=== PATIENT | female | born 1960 | race Caucasian/White ===

== ENCOUNTER 2017-09-19 19:17 | Emergency (ER) | payer OTHER ==
[~2017-09-19] VITALS: Ht 157.5 cm; Wt 56.7 kg
[~2017-09-19 19:17] MED LIST: ACEASPCAF PO; ACEBUTCAFT PO; ALBU90OI INH; ASCO500 PO; AZIT250 PO; Avelox400 MG PO; BUPR150ER PO; CODBUTASA PO; CYCL10 PO; DILAUDID PO; DOCU100 PO; DULERA 100 MCG/13 GM INH; ERGO400 PO; FAMO20 PO; Flagyl250 MG PO; GABA100 PO; GABA400 PO; Gas Relief 8080 MG PO; HYDACE5 PO; HYDACE5325 PO; HYDMOR2 PO; HYDR1TAB94 PO; IPRAOI INH; Inderal60 MG; LEVFLO500 PO; LEVO750 PO; LORA.5 PO; LORA1 PO; LORA10 PO; LORA2 PO; MONT10T PO; NAPR550 PO; Norco 10-325 T1 EACH PO; OMEP20ER PO; ONDA4 PO; OSTEOPOROSIS MED; OXYACE5T PO; PRED10 PO; PROC10 PO; PROM25 PO; PROP10 PO; Percocet 5-3251 EACH PO; Percocet 7.5-31 EACH PO; QUET100 PO; QUET25 PO; ROPI.25 PO; RXHYDACE PO; RXLORA1 PO; RXNAPNA550 PO; SERT100 PO; SERT50 PO; SULTRISS PO; SUMA25 PO; TRAZ50 PO; TYLENOL PO; VENL75ER PO; Valium5 MG PO; Zofran Odt4 MG SL; [UNRECOGNIZED DRUG - REMARK]; [UNRECOGNIZED DRUG - REMARK]
[2017-09-19] MEDS ORDERED: CHOL10002 PO (19:33)
[2017-09-19] MEDS ORDERED: ALBU90OI INH (19:33)
[2017-09-19] MEDS ORDERED: DOCU100 PO (19:34)
[2017-09-19] MEDS ORDERED: LORPSEER24 PO (19:35)
[2017-09-19] MEDS ORDERED: HYDHCL25 PO (19:35)
[2017-09-19] MEDS ORDERED: Inderal40 MG PO (19:36)
[2017-09-19] MEDS ORDERED: ONDA4ODT MM (19:36)
[2017-09-19] MEDS ORDERED: MONT10T PO (19:36)
[2017-09-19] MEDS ORDERED: SERT50 PO (19:37)
[2017-09-19] MEDS ORDERED: QUET200 PO (19:37)
[2017-09-19] MEDS ORDERED: ROPI.25 PO (19:37)
[2017-09-19] MEDS ORDERED: SUMA25 PO (19:38)
[2017-09-19 20:05] LABS: Calcium, Ionized (POC) 1.34 mmol/L (1.10-1.46); Chloride (POC) 106 mmol/L (98-108); Creatinine (POC) 0.7 mg/dL (0.6-1.0); Glucose (ISTAT POC) 89 mg/dL (70-99); Hemoglobin (POC) 12.6 g/dL (12.0-16.0); Potassium (POC) 3.7 mmol/L (3.5-5.5); Sodium (POC) 143 mmol/L (135-148); Total CO2 (POC) 28 mmol/L (21-32)
[2017-09-19] MEDS ORDERED: HYDR1TAB94 PO (21:25)
== END 2017-09-19 22:03 | disposition home or self-care (01) ==
LOC: ER 19:17
PROVIDERS: Emergency Medicine
DX: S02.2XXA Fracture of nasal bones, initial encounter for closed fracture (principal); S80.212A Abrasion, left knee, initial encounter; S00.212A Abrasion of left eyelid and periocular area, initial encounter; F41.9 Anxiety disorder, unspecified; I25.2 Old myocardial infarction; W01.118A Fall on same level from slipping, tripping and stumbling with subsequent striking against other sharp object, initial encounter; Z88.0 Allergy status to penicillin; Z88.8 Allergy status to other drugs, medicaments and biological substances; Z88.2 Allergy status to sulfonamides; Z79.899 Other long term (current) drug therapy; Z87.891 Personal history of nicotine dependence
CPT/HCPCS: 36415; 70486; 80047; 85014; 93005; 93010; 96374; 99284; J1170

== ENCOUNTER 2018-09-30 18:43 | Emergency (ER) | payer OTHER ==
[~2018-09-30] VITALS: Ht 157.5 cm; Wt 65.3 kg
[~2018-09-30 18:43] MED LIST changes: +CHOL10002 PO; +HYDHCL25 PO; +Inderal40 MG PO; +LORPSEER24 PO; +ONDA4ODT MM; +QUET200 PO
[2018-09-30] MEDS ORDERED: Buspirone HCl15 MG PO (19:07)
[2018-09-30] MEDS ORDERED: SUMA25 PO (19:08)
[2018-09-30] MEDS ORDERED: ONDA4 PO (19:08)
[2018-09-30] MEDS ORDERED: FISH OIL + D31 EACH PO (19:08)
[2018-09-30] MEDS ORDERED: OMEPRAZOLE MAGN20 MG PO (19:09)
[2018-09-30] MEDS ORDERED: LEVSOD50 PO (19:09)
[2018-09-30] MEDS ORDERED: OXYM.05NI (19:09)
[2018-09-30] MEDS ORDERED: Inderal40 MG (19:10)
[2018-09-30] MEDS ORDERED: DOCU100 PO (19:10)
[2018-09-30] MEDS ORDERED: QUET200 PO (19:10)
[2018-09-30] MEDS ORDERED: HYDHCL25 PO (19:11)
[2018-09-30] MEDS ORDERED: ROPI.25 PO (19:11)
[2018-09-30] MEDS ORDERED: MONT10T PO (19:11)
[2018-09-30] MEDS ORDERED: Flexeril5 MG (19:12)
[2018-09-30 19:15] LABS: BASOPHILS ABSOLUTE AUTO 0.08 K/mm3 (0.00-0.23); BASOPHILS PERCENT AUTO 1 % (0-2); EOSINOPHILS PERCENT AUTO 3 % (0-6); Hematocrit 36.9 % (33.0-51.0); Hemoglobin 11.8 g/dL (11.5-16.0); IMMATURE GRAN ABSOLUTE AUTO 0.02 K/mm3 (0.00-0.10); IMMATURE GRAN PERCENT AUTO 0 % (0-1); LYMPHOCYTES ABSOLUTE AUTO 3.07 K/mm3 (0.84-5.20); LYMPHOCYTES PERCENT AUTO 26 % (21-46); MONOCYTES PERCENT AUTO 6 % (4-13); Mean Corpuscular HGB 29.8 pg (26.0-34.0); Mean Corpuscular Volume 93 fL (80-100); Mean Platelet Volume 9.9 fL (9.1-12.4); NEUTROPHILS ABSOLUTE AUTO 7.59 K/mm3 (1.96-9.15); NEUTROPHILS PERCENT AUTO 64 % (41-73); Platelet Count 393 K/mm3 (150-400); RDW Coefficient Variation 13.4 % (11.7-14.2); Red Blood Cell Count 3.96 M/mm3 (3.80-5.20); White Blood Cell Count 11.86 K/mm3 (4.00-11.30)
[2018-09-30 19:40] LABS: Troponin I <0.015 ng/mL (0.000-0.040)
[2018-09-30 19:55] LABS: Alanine Aminotransfer (ALT/SGP 17 U/L (12-78); Albumin, Blood 3.2 g/dL (3.4-5.0); Albumin/Globulin Ratio 0.9 (0.8-1.8); Alk Phos 135 U/L (50-136); Anion Gap 6 mmol/L (6-16); Aspartate Aminotrans (AST/SGOT 17 U/L (12-37); Bilirubin, Total 0.3 mg/dL (0.1-1.0); Blood Urea Nitrogen 12 mg/dL (8-24); CO2, Blood 23 mmol/L (21-32); Calcium, Blood 9.6 mg/dL (8.5-10.1); Chloride, Blood 111 mmol/L (98-108); Globulin, Blood 3.7 g/dL (2.2-4.0); Glomerular Filtration Rate >60 (60-); Glucose, Blood 99 mg/dL (70-99); Potassium, Blood 3.9 mmol/L (3.5-5.5); Sodium, Blood 140 mmol/L (136-145); Total Protein, Blood 6.9 g/dL (6.4-8.2)
[2018-09-30] MEDS ORDERED: IBUP600 PO (22:01)
== END 2018-09-30 22:26 | disposition home or self-care (01) ==
LOC: ER 18:43
PROVIDERS: Emergency Medicine
DX: R07.9 Chest pain, unspecified (principal); F41.9 Anxiety disorder, unspecified; I25.2 Old myocardial infarction; F17.210 Nicotine dependence, cigarettes, uncomplicated; Z88.0 Allergy status to penicillin; Z88.2 Allergy status to sulfonamides; Z79.899 Other long term (current) drug therapy
CPT/HCPCS: 36415; 71045; 80053; 83880; 84484; 85025; 85379; 93005; 93010; 94640; 96374; 96375; 96376; 99285-25; J1885; J3010

== ENCOUNTER 2018-12-22 14:13 | Emergency (ER) | payer OTHER ==
[~2018-12-22] VITALS: Ht 157.5 cm; Wt 64.9 kg
[~2018-12-22 14:13] MED LIST changes: +Buspirone HCl15 MG PO; +FISH OIL + D31 EACH PO; +Flexeril5 MG; +IBUP600 PO; +Inderal40 MG; +LEVSOD50 PO; +OMEPRAZOLE MAGN20 MG PO; +OXYM.05NI
[2018-12-22] MEDS ORDERED: Percocet 10-321 EACH PO (17:49)
[2018-12-22] MEDS ORDERED: Crutch1 EACH MISC (17:53)
== END 2018-12-22 18:18 | disposition home or self-care (01) ==
LOC: ER 14:13
DX: S82.841A Displaced bimalleolar fracture of right lower leg, initial encounter for closed fracture (principal); S89.201A Unspecified physeal fracture of upper end of right fibula, initial encounter for closed fracture; I25.2 Old myocardial infarction; F41.9 Anxiety disorder, unspecified; G40.909 Epilepsy, unspecified, not intractable, without status epilepticus; J44.9 Chronic obstructive pulmonary disease, unspecified; F17.200 Nicotine dependence, unspecified, uncomplicated; Z88.2 Allergy status to sulfonamides; Z88.0 Allergy status to penicillin; Z88.8 Allergy status to other drugs, medicaments and biological substances; Z79.899 Other long term (current) drug therapy; X50.1XXA Overexertion from prolonged static or awkward postures, initial encounter
CPT/HCPCS: 29515; 73590; 73600; 96374-59; 96375-59; 96376-59; 99284-25; J1170; J2405

== ENCOUNTER 2018-12-27 12:24 | Emergency (ER) | payer OTHER ==
[~2018-12-27] VITALS: Ht 157.5 cm; Wt 64.9 kg
[~2018-12-27 12:24] MED LIST changes: +Crutch1 EACH MISC; +Percocet 10-321 EACH PO
[2018-12-27] MEDS ORDERED: Percocet 5-3251 EACH PO (15:01)
== END 2018-12-27 15:20 | disposition home or self-care (01) ==
LOC: ER 12:24
DX: S90.01XA Contusion of right ankle, initial encounter (principal); Z46.89 Encounter for fitting and adjustment of other specified devices; X58.XXXA Exposure to other specified factors, initial encounter; Z88.0 Allergy status to penicillin; Z88.8 Allergy status to other drugs, medicaments and biological substances; Z88.1 Allergy status to other antibiotic agents; Z79.899 Other long term (current) drug therapy; F41.9 Anxiety disorder, unspecified; F17.210 Nicotine dependence, cigarettes, uncomplicated; J44.9 Chronic obstructive pulmonary disease, unspecified
CPT/HCPCS: 99283

== ENCOUNTER 2019-03-12 11:08 | Emergency (ER) | payer OTHER ==
[~2019-03-12] VITALS: Ht 157.5 cm; Wt 64.9 kg
[~2019-03-12 11:08] MED LIST changes: -Inderal40 MG
[2019-03-12 11:54] LABS: BASOPHILS ABSOLUTE AUTO 0.05 K/mm3 (0.00-0.23); BASOPHILS PERCENT AUTO 0 % (0-2); EOSINOPHILS ABSOLUTE AUTO 0.09 K/mm3 (0.00-0.68); EOSINOPHILS PERCENT AUTO 1 % (0-6); Hematocrit 36.1 % (33.0-51.0); Hemoglobin 11.9 g/dL (11.5-16.0); IMMATURE GRAN ABSOLUTE AUTO 0.05 K/mm3 (0.00-0.10); IMMATURE GRAN PERCENT AUTO 0 % (0-1); LYMPHOCYTES ABSOLUTE AUTO 1.83 K/mm3 (0.84-5.20); LYMPHOCYTES PERCENT AUTO 13 % (21-46); MONOCYTES ABSOLUTE AUTO 0.77 K/mm3 (0.16-1.47); MONOCYTES PERCENT AUTO 6 % (4-13); Mean Corpuscular HGB 30.1 pg (26.0-34.0); Mean Corpuscular Volume 91 fL (80-100); Mean Platelet Volume 9.6 fL (9.1-12.4); NEUTROPHILS ABSOLUTE AUTO 11.29 K/mm3 (1.96-9.15); NEUTROPHILS PERCENT AUTO 80 % (41-73); Platelet Count 298 K/mm3 (150-400); RDW Coefficient Variation 14.1 % (11.7-14.2); RDW Standard Deviation 47.5 fL (35.1-46.3); Red Blood Cell Count 3.96 M/mm3 (3.80-5.20); White Blood Cell Count 14.08 K/mm3 (4.00-11.30)
[2019-03-12 12:17] LABS: Alanine Aminotransfer (ALT/SGP 10 U/L (12-78); Albumin, Blood 2.7 g/dL (3.4-5.0); Albumin/Globulin Ratio 0.7 (0.8-1.8); Alk Phos 112 U/L (50-136); Anion Gap 5 mmol/L (6-16); Aspartate Aminotrans (AST/SGOT 9 U/L (12-37); Bilirubin, Total 0.3 mg/dL (0.1-1.0); Blood Urea Nitrogen 8 mg/dL (8-24); Bun/Creatinine Ratio 12.5 (12.0-20.0); CO2, Blood 23 mmol/L (21-32); Calcium, Blood 9.7 mg/dL (8.5-10.1); Chloride, Blood 111 mmol/L (98-108); Creatinine, Blood 0.64 mg/dL (0.40-1.00); Globulin, Blood 3.7 g/dL (2.2-4.0); Glomerular Filtration Rate >60 (60-); Glucose, Blood 107 mg/dL (70-99); Potassium, Blood 4.4 mmol/L (3.5-5.5); Sodium, Blood 139 mmol/L (136-145); Total Protein, Blood 6.4 g/dL (6.4-8.2)
[2019-03-12 13:02] LABS: Source, Urine Clean Catch
[2019-03-12 13:11] LABS: Bilirubin, Urine Neg (Neg); Blood, Urine 3+ (Neg); Glucose Qualitative, Urine Neg (Neg); Ketones, Urine Neg (Neg); Leukocyte Esterase, Urine Neg (Neg); Nitrite, Urine Neg (Neg); Protein, Urine Neg (Neg); Specific Gravity, Urine 1.015 (1.003-1.022); Urobilinogen, Urine NORM (Normal); pH, Urine 6.5 (5.0-8.0)
[2019-03-12 13:17] LABS: Appearance, Urine Clear (Clear); Color, Urine Yellow (P-Yellow)
[2019-03-12 13:18] LABS: Bacteria Mod /hpf; Squamous Epithelial Cells Few /hpf (Few); White Blood Cells, Urine 0-2 /hpf (0-5)
[2019-03-12 13:19] LABS: Mucus Mod (0-Heavy)
[2019-03-12] MEDS ORDERED: Cipro500 MG PO (13:36)
[2019-03-12] MEDS ORDERED: Flagyl500 MG PO (13:36)
[2019-03-12] MEDS ORDERED: Norco 5-325 Ta1 EACH PO (13:36)
== END 2019-03-12 13:56 | disposition home or self-care (01) ==
LOC: ER 11:08
PROVIDERS: Emergency Medicine
DX: K57.32 Diverticulitis of large intestine without perforation or abscess without bleeding (principal); K59.00 Constipation, unspecified; Z88.0 Allergy status to penicillin; Z88.8 Allergy status to other drugs, medicaments and biological substances; Z88.2 Allergy status to sulfonamides; Z88.1 Allergy status to other antibiotic agents; Z79.899 Other long term (current) drug therapy; I25.2 Old myocardial infarction; F41.9 Anxiety disorder, unspecified; J44.9 Chronic obstructive pulmonary disease, unspecified; G40.909 Epilepsy, unspecified, not intractable, without status epilepticus; F17.210 Nicotine dependence, cigarettes, uncomplicated
CPT/HCPCS: 36415; 74022; 74176; 80053; 81001; 83690; 85025; 87086; 96372-59; 96374; 99284-25; A9270-GY; J0500; J0780

== ENCOUNTER 2019-03-18 20:28 | Inpatient (IN) | payer OTHER ==
[~2019-03-18] VITALS: Ht 157.5 cm; Wt 69.1 kg
[~2019-03-18 20:28] MED LIST changes: +Cipro500 MG PO; +Flagyl500 MG PO; +Norco 5-325 Ta1 EACH PO
[2019-03-19 00:31] LABS: BASOPHILS ABSOLUTE AUTO 0.08 K/mm3 (0.00-0.23); BASOPHILS PERCENT AUTO 1 % (0-2); EOSINOPHILS ABSOLUTE AUTO 0.23 K/mm3 (0.00-0.68); EOSINOPHILS PERCENT AUTO 1 % (0-6); Hematocrit 36.7 % (33.0-51.0); Hemoglobin 11.8 g/dL (11.5-16.0); IMMATURE GRAN ABSOLUTE AUTO 0.07 K/mm3 (0.00-0.10); IMMATURE GRAN PERCENT AUTO 0 % (0-1); LYMPHOCYTES ABSOLUTE AUTO 3.41 K/mm3 (0.84-5.20); LYMPHOCYTES PERCENT AUTO 20 % (21-46); MONOCYTES ABSOLUTE AUTO 1.37 K/mm3 (0.16-1.47); MONOCYTES PERCENT AUTO 8 % (4-13); Mean Corpuscular HGB 29.8 pg (26.0-34.0); Mean Corpuscular HGB Conc 32.2 g/dL (31.5-36.5); Mean Corpuscular Volume 93 fL (80-100); Mean Platelet Volume 9.1 fL (9.1-12.4); NEUTROPHILS ABSOLUTE AUTO 11.63 K/mm3 (1.96-9.15); NEUTROPHILS PERCENT AUTO 69 % (41-73); Platelet Count 571 K/mm3 (150-400); RDW Coefficient Variation 14.1 % (11.7-14.2); Red Blood Cell Count 3.96 M/mm3 (3.80-5.20); White Blood Cell Count 16.79 K/mm3 (4.00-11.30)
--- NOTE | 2019-03-19 00:40 | NUR ---
PT ADMITTED FROM ED FOR DIVERTICULITIS. A&O X4. VSS. PT REPORTS ABD PAIN FOR 10 DAYS. UNABLE TO EAT R/T N/V. GIVEN ZOFRAN IN ED. PT CURRENTLY RATING PAIN 10/10. WILL CALL HOSPITALIST FOR PAIN MEDICATION ORDERS. LR INFUSING AT 125. RIGHT FOOT WRAPPED IN AVA WRAP S/P ANKLE REPAIR. PT NON WEIGHT BEARING TO RLE.
[2019-03-19 00:48] LABS: Anion Gap 4 mmol/L (6-16); Blood Urea Nitrogen 9 mg/dL (8-24); Bun/Creatinine Ratio 14.1 (12.0-20.0); CO2, Blood 28 mmol/L (21-32); Calcium, Blood 9.4 mg/dL (8.5-10.1); Chloride, Blood 108 mmol/L (98-108); Creatinine, Blood 0.64 mg/dL (0.40-1.00); Glomerular Filtration Rate >60 (60-); Glucose, Blood 99 mg/dL (70-99); Potassium, Blood 3.4 mmol/L (3.5-5.5); Sodium, Blood 140 mmol/L (136-145)
[2019-03-19] MEDS ORDERED: [UNRECOGNIZED DRUG - OTHER] PO (01:34)
[2019-03-19] MEDS ORDERED: Gas-X125 M1 PO (01:34)
--- NOTE | 2019-03-19 19:16 | NUR ---
SHIFT SUMMARY PT A&OX4, VSS, PAIN MANAGED W/ 1MG DILAUDID Q4HPRN. N&V ZOFRAN GIVEN 1X; ONLY TOLERATING SIPS/CHIPS. AMB IND TO BSC. VOIDING WELL. R FOOT NWB, ELEVATED. PLAN FOR ABX. REPORT GIVEN TO JOHN VALDIVIA.
--- NOTE | 2019-03-19 21:15 | NUR ---
PHONE CALL TO DR GOOD REGARDING PT REFUSAL OF FULL INFUSION OF POTASSIUM IV DUE TO DISCOMFORT.CURRENTLY WITH HTN, MILD TACHY, WEAK RADIAL PULSES AND PEDAL PULSES PER DOPPLER. DISCUSSED PT HX COPD AND CURRENTLY POOR AIR MOVEMENT WITH SQUEAKS AND WHEEZES. PT VERB USE OF PRN NEBS AT HOME NOT ON MED LIST. DISCUSSED HOME MED LIST.CURRENTLY DENIED CP OR SOB. ON R/A WITH SATISF SATS.PT WITH OCC SPIT UP, BUT NOTING GAGGING ON MUCUS PRIOR TO SPITUP. PO POTASSIUM ORDERED WELL HOME MEDS AND RT ORDERS.
--- NOTE | 2019-03-20 01:09 | NUR ---
VS WITH SOME IMPROVEMENT.ALTHOUGH DENIED SOB, REPORTS BREATHING DOES FEEL BETTER SINCE UDN TX. SEE VS FLOW RECORD AND EMAR.PT REPORTS DILAUDID EFFECTIVE FOR PAIN CONTROL. SLEEPING OFF AND ON. HAD EMESIS X1 TONIGHT AFTER GAGGING ON MUCUS, BUT REPORTS IMMEDIATELY FELT BETTER AFTER.
[2019-03-20 04:25] LABS: BASOPHILS ABSOLUTE AUTO 0.07 K/mm3 (0.00-0.23); BASOPHILS PERCENT AUTO 1 % (0-2); EOSINOPHILS ABSOLUTE AUTO 0.14 K/mm3 (0.00-0.68); EOSINOPHILS PERCENT AUTO 1 % (0-6); Hematocrit 31.4 % (33.0-51.0); Hemoglobin 10.2 g/dL (11.5-16.0); IMMATURE GRAN ABSOLUTE AUTO 0.04 K/mm3 (0.00-0.10); IMMATURE GRAN PERCENT AUTO 0 % (0-1); LYMPHOCYTES ABSOLUTE AUTO 2.39 K/mm3 (0.84-5.20); LYMPHOCYTES PERCENT AUTO 17 % (21-46); MONOCYTES ABSOLUTE AUTO 0.99 K/mm3 (0.16-1.47); MONOCYTES PERCENT AUTO 7 % (4-13); Mean Corpuscular HGB 29.9 pg (26.0-34.0); Mean Corpuscular HGB Conc 32.5 g/dL (31.5-36.5); Mean Corpuscular Volume 92 fL (80-100); Mean Platelet Volume 9.3 fL (9.1-12.4); NEUTROPHILS ABSOLUTE AUTO 10.83 K/mm3 (1.96-9.15); NEUTROPHILS PERCENT AUTO 75 % (41-73); Platelet Count 553 K/mm3 (150-400); RDW Coefficient Variation 14.3 % (11.7-14.2); RDW Standard Deviation 48.3 fL (35.1-46.3); Red Blood Cell Count 3.41 M/mm3 (3.80-5.20); White Blood Cell Count 14.46 K/mm3 (4.00-11.30)
[2019-03-20 04:49] LABS: Albumin, Blood 2.4 g/dL (3.4-5.0); Anion Gap 5 mmol/L (6-16); Blood Urea Nitrogen 5 mg/dL (8-24); Bun/Creatinine Ratio 9.2 (12.0-20.0); CO2, Blood 27 mmol/L (21-32); Calcium, Blood 9.2 mg/dL (8.5-10.1); Chloride, Blood 107 mmol/L (98-108); Creatinine, Blood 0.54 mg/dL (0.40-1.00); Glomerular Filtration Rate >60 (60-); Glucose, Blood 105 mg/dL (70-99); Potassium, Blood 4.3 mmol/L (3.5-5.5); Sodium, Blood 139 mmol/L (136-145)
--- NOTE | 2019-03-20 06:11 | NUR ---
SUMMARY PT RESTING. HAS NEW IV OBTAINED PER Jeremy MERCER RN. PT RECEIVED ZOFRAN FOR N/V TONIGHT. DENIES NAUSEA AT THIS TIME. TOOK 0600 PO MEDS.
[2019-03-20] MEDS ORDERED: [UNRECOGNIZED DRUG - OTHER] (07:19)
[2019-03-20 09:57] LABS: Vancomycin, Trough 12.5 ug/mL (5.0-10.0)
--- NOTE | 2019-03-20 17:58 | NUR ---
SUMMARY: NO ACUTE CHANGE THIS SHIFT. PT IS A/0, VSS. PT CONTINUES TO HAVE ABD PAIN, MODERATE DISTENTION, MEDICATED PER EMAR. REPORTED SOME NAUSEA TODAY, ZOFRAN GIVEN. PT GIVEN BREATHING TREATMENT X1, REPORTS BREATHING BETTER AFTER TX. PT UP FREQENTLY TO VOID, STAND AND PIVOT TO CHAIR. PT REPORTS NOT BEARING WEIGHT ON R LEG.
--- NOTE | 2019-03-21 06:39 | NUR ---
SUMMARY PT REPORTS FEELING BETTER THIS SHIFT. NO N/V NOTED. CONT TO REQUIRE IV DILAUDID FOR ABD PAIN. NO BMS THIS SHIFT FOR SAMPLE TESTING.VOIDING WITHOUT DIFF.
[2019-03-21 06:45] LABS: BASOPHILS ABSOLUTE AUTO 0.06 K/mm3 (0.00-0.23); BASOPHILS PERCENT AUTO 1 % (0-2); EOSINOPHILS ABSOLUTE AUTO 0.25 K/mm3 (0.00-0.68); EOSINOPHILS PERCENT AUTO 2 % (0-6); Hematocrit 31.5 % (33.0-51.0); Hemoglobin 10.3 g/dL (11.5-16.0); IMMATURE GRAN ABSOLUTE AUTO 0.03 K/mm3 (0.00-0.10); IMMATURE GRAN PERCENT AUTO 0 % (0-1); LYMPHOCYTES ABSOLUTE AUTO 2.95 K/mm3 (0.84-5.20); LYMPHOCYTES PERCENT AUTO 29 % (21-46); MONOCYTES ABSOLUTE AUTO 0.83 K/mm3 (0.16-1.47); MONOCYTES PERCENT AUTO 8 % (4-13); Mean Corpuscular HGB 29.8 pg (26.0-34.0); Mean Corpuscular HGB Conc 32.7 g/dL (31.5-36.5); Mean Corpuscular Volume 91 fL (80-100); Mean Platelet Volume 9.3 fL (9.1-12.4); NEUTROPHILS ABSOLUTE AUTO 6.11 K/mm3 (1.96-9.15); NEUTROPHILS PERCENT AUTO 60 % (41-73); Platelet Count 530 K/mm3 (150-400); RDW Coefficient Variation 14.4 % (11.7-14.2); RDW Standard Deviation 48.5 fL (35.1-46.3); Red Blood Cell Count 3.46 M/mm3 (3.80-5.20); White Blood Cell Count 10.23 K/mm3 (4.00-11.30)
[2019-03-21 06:57] LABS: Albumin, Blood 2.2 g/dL (3.4-5.0); Anion Gap 5 mmol/L (6-16); Blood Urea Nitrogen 5 mg/dL (8-24); Bun/Creatinine Ratio 8.9 (12.0-20.0); CO2, Blood 25 mmol/L (21-32); Calcium, Blood 9.1 mg/dL (8.5-10.1); Chloride, Blood 112 mmol/L (98-108); Creatinine, Blood 0.56 mg/dL (0.40-1.00); Glomerular Filtration Rate >60 (60-); Glucose, Blood 98 mg/dL (70-99); Phosphorus, Blood 1.6 mg/dL (2.5-4.9); Potassium, Blood 3.6 mmol/L (3.5-5.5); Sodium, Blood 142 mmol/L (136-145)
--- NOTE | 2019-03-21 17:30 | NUR ---
SHIFT SUMMARY PT A&OX4, VSS. PAIN MANAGED WITH 0.5-1 MG DILAUDID Q4. JOSE SMALL AMTS PO NOW; ZOFRAN GIVEN X1 THIS AM. PT REP PASSING LARGE AMTS OF FLATUS, VOIDING WELL. AMB STAND/PIVOT TO BSC. R FT NWB ELEVATED AND ICED. WCTM & TX PER EMAR UNTIL REPORT GIVEN TO ZEINAB CORNELIUS RN.
--- NOTE | 2019-03-22 04:41 | NUR ---
SHIFT SUMMARY: PT A&O X4. VS STABLE THROUGHOUT SHIFT. PAIN MANAGED WITH 1MG DILAUDID Q4 PER EMAR. BM X1. PT REPORTS PASSING FLATUS. OOB TO BSC USING STAND/PIVOT. NON WEIGHT BEARING TO RLE. FLUIDS INFUSING. PT JOSE PO. DENIES N/V.
[2019-03-22 09:17] LABS: Vancomycin, Trough 15.2 ug/mL (5.0-10.0)
[2019-03-22] MEDS ORDERED: CIPR500 PO (11:17)
[2019-03-22] MEDS ORDERED: METR500 PO (11:17)
[2019-03-22] MEDS ORDERED: MIRALAX17 GM PO (11:18)
--- NOTE | 2019-03-22 12:05 | NUR ---
SHIFT SUMMARY PT A&OX4, VSS, LEFT FLOOR VIA WC WITH MEDICAL PATHOLOGY TEACHER, TO GO HOME WITH FAMILY, WITH ALL PERSONAL POSSESSIONS INCLUDING DISCHARGE PACKET; NEW MEDS FAXED TO [place] [facility]. DISCHARGE INSTRUCTIONS PROVIDED. PT REP UNDERSTANDING THOSE INSTRUCTIONS INCLUDING FU WITH [facility], TAKE ABX BID X 14 DAYS AND MIRALAX DAILY. JOSIANE BRADLEY.
== END 2019-03-22 11:59 | disposition home or self-care (01) | DRG 392 ==
LOC: ER 20:28 → MEDS 21:36 → SURS 03-19 00:27
PROVIDERS: Internal Medicine; ADMIT Hospitalist
DX: K57.32 Diverticulitis of large intestine without perforation or abscess without bleeding (principal); D64.9 Anemia, unspecified; K59.00 Constipation, unspecified; D70.9 Neutropenia, unspecified; F17.210 Nicotine dependence, cigarettes, uncomplicated; E87.6 Hypokalemia; D47.3 Essential (hemorrhagic) thrombocythemia; J44.9 Chronic obstructive pulmonary disease, unspecified; S82.841D Displaced bimalleolar fracture of right lower leg, subsequent encounter for closed fracture with routine healing; F41.9 Anxiety disorder, unspecified; I25.2 Old myocardial infarction; Z79.891 Long term (current) use of opiate analgesic; Z79.899 Other long term (current) drug therapy; Z88.0 Allergy status to penicillin; Z88.2 Allergy status to sulfonamides; Z88.8 Allergy status to other drugs, medicaments and biological substances
CPT/HCPCS: 36415; 80048; 80069; 80202; 82565; 83735; 85025; 94640; 94760; 96365; 96367; 96375; 99285-25; A9270; J0692; J1170; J2405; J3010; J3370; J3480; J7030; J7060; J7120

== ENCOUNTER 2019-03-24 16:59 | Emergency (ER) | payer OTHER ==
[~2019-03-24] VITALS: Ht 157.5 cm; Wt 64.9 kg
[~2019-03-24 16:59] MED LIST changes: +CIPR500 PO; +Gas-X125 M1 PO; +METR500 PO; +MIRALAX17 GM PO; +[UNRECOGNIZED DRUG - OTHER]; +[UNRECOGNIZED DRUG - OTHER] PO
[2019-03-24 19:04] LABS: BASOPHILS ABSOLUTE AUTO 0.09 K/mm3 (0.00-0.23); BASOPHILS PERCENT AUTO 1 % (0-2); EOSINOPHILS ABSOLUTE AUTO 0.21 K/mm3 (0.00-0.68); EOSINOPHILS PERCENT AUTO 2 % (0-6); Hematocrit 41.3 % (33.0-51.0); Hemoglobin 12.8 g/dL (11.5-16.0); IMMATURE GRAN ABSOLUTE AUTO 0.06 K/mm3 (0.00-0.10); IMMATURE GRAN PERCENT AUTO 1 % (0-1); LYMPHOCYTES ABSOLUTE AUTO 2.81 K/mm3 (0.84-5.20); LYMPHOCYTES PERCENT AUTO 26 % (21-46); MONOCYTES ABSOLUTE AUTO 0.65 K/mm3 (0.16-1.47); MONOCYTES PERCENT AUTO 6 % (4-13); Mean Corpuscular HGB 29.6 pg (26.0-34.0); Mean Platelet Volume 9.5 fL (9.1-12.4); NEUTROPHILS ABSOLUTE AUTO 6.96 K/mm3 (1.96-9.15); NEUTROPHILS PERCENT AUTO 65 % (41-73); Platelet Count 556 K/mm3 (150-400); RDW Coefficient Variation 15.2 % (11.7-14.2); RDW Standard Deviation 52.9 fL (35.1-46.3); Red Blood Cell Count 4.33 M/mm3 (3.80-5.20); White Blood Cell Count 10.78 K/mm3 (4.00-11.30)
[2019-03-24 19:05] LABS: Mean Corpuscular Volume 95 fL (80-100)
[2019-03-24 19:32] LABS: Alanine Aminotransfer (ALT/SGP 14 U/L (12-78); Albumin, Blood 3.1 g/dL (3.4-5.0); Albumin/Globulin Ratio 0.8 (0.8-1.8); Alk Phos 108 U/L (50-136); Anion Gap 9 mmol/L (6-16); Aspartate Aminotrans (AST/SGOT 16 U/L (12-37); Bilirubin, Total 0.2 mg/dL (0.1-1.0); Blood Urea Nitrogen 5 mg/dL (8-24); Bun/Creatinine Ratio 7.8 (12.0-20.0); CO2, Blood 23 mmol/L (21-32); Chloride, Blood 110 mmol/L (98-108); Creatinine, Blood 0.64 mg/dL (0.40-1.00); Glomerular Filtration Rate >60 (60-); Glucose, Blood 91 mg/dL (70-99); Potassium, Blood 3.1 mmol/L (3.5-5.5); Sodium, Blood 142 mmol/L (136-145); Total Protein, Blood 7.1 g/dL (6.4-8.2); Troponin I <0.015 ng/mL (0.000-0.040)
[2019-03-24] MEDS ORDERED: Zofran4 MG PO (19:55)
[2019-03-24] MEDS ORDERED: K-Dur20 MEQ PO (19:55)
== END 2019-03-24 20:40 | disposition home or self-care (01) ==
LOC: ER 16:59
PROVIDERS: Emergency Medicine
DX: J44.1 Chronic obstructive pulmonary disease with (acute) exacerbation (principal); R60.0 Localized edema; F41.9 Anxiety disorder, unspecified; G40.909 Epilepsy, unspecified, not intractable, without status epilepticus; I25.2 Old myocardial infarction; F17.210 Nicotine dependence, cigarettes, uncomplicated; Z79.899 Other long term (current) drug therapy; Z88.0 Allergy status to penicillin
CPT/HCPCS: 71046; 80053; 83880; 84484; 85025; 93005; 93010; 94640; 96374; 96375; 99285-25; J1940; J2270; J2405; J3480

== ENCOUNTER 2019-05-17 17:35 | Emergency (ER) | payer OTHER ==
[~2019-05-17] VITALS: Ht 157.5 cm; Wt 64.9 kg
[~2019-05-17 17:35] MED LIST changes: +K-Dur20 MEQ PO; +Zofran4 MG PO
== END 2019-05-17 20:56 | disposition left against medical advice (07) ==
LOC: ER 17:35
DX: M25.551 Pain in right hip (principal); I25.2 Old myocardial infarction; J44.9 Chronic obstructive pulmonary disease, unspecified; F41.9 Anxiety disorder, unspecified; F17.210 Nicotine dependence, cigarettes, uncomplicated; Z88.0 Allergy status to penicillin; Z88.2 Allergy status to sulfonamides; Z88.1 Allergy status to other antibiotic agents; Z88.8 Allergy status to other drugs, medicaments and biological substances; Z79.899 Other long term (current) drug therapy; W01.0XXA Fall on same level from slipping, tripping and stumbling without subsequent striking against object, initial encounter
CPT/HCPCS: 36415; 73502; 96374; 96375; 99284-25; J2405; J3010

== ENCOUNTER 2019-08-30 21:02 | Emergency (ER) | payer OTHER ==
[~2019-08-30] VITALS: Ht 157.5 cm; Wt 63.5 kg
[2019-08-30 21:31] LABS: BASOPHILS ABSOLUTE AUTO 0.09 K/mm3 (0.00-0.23); BASOPHILS PERCENT AUTO 1 % (0-2); EOSINOPHILS ABSOLUTE AUTO 0.46 K/mm3 (0.00-0.68); EOSINOPHILS PERCENT AUTO 5 % (0-6); Hematocrit 33.3 % (33.0-51.0); Hemoglobin 10.7 g/dL (11.5-16.0); IMMATURE GRAN ABSOLUTE AUTO 0.03 K/mm3 (0.00-0.10); IMMATURE GRAN PERCENT AUTO 0 % (0-1); LYMPHOCYTES ABSOLUTE AUTO 2.98 K/mm3 (0.84-5.20); LYMPHOCYTES PERCENT AUTO 34 % (21-46); MONOCYTES ABSOLUTE AUTO 0.48 K/mm3 (0.16-1.47); MONOCYTES PERCENT AUTO 6 % (4-13); Mean Corpuscular HGB 30.3 pg (26.0-34.0); Mean Corpuscular HGB Conc 32.1 g/dL (31.5-36.5); Mean Corpuscular Volume 94 fL (80-100); Mean Platelet Volume 9.7 fL (9.1-12.4); NEUTROPHILS ABSOLUTE AUTO 4.71 K/mm3 (1.96-9.15); NEUTROPHILS PERCENT AUTO 54 % (41-73); Platelet Count 333 K/mm3 (150-400); RDW Coefficient Variation 13.2 % (11.7-14.2); Red Blood Cell Count 3.53 M/mm3 (3.80-5.20); White Blood Cell Count 8.75 K/mm3 (4.00-11.30)
[2019-08-30 21:51] LABS: Alanine Aminotransfer (ALT/SGP 14 U/L (12-78); Albumin, Blood 3.2 g/dL (3.4-5.0); Alk Phos 131 U/L (50-136); Anion Gap 6 mmol/L (6-16); Aspartate Aminotrans (AST/SGOT 11 U/L (12-37); Bilirubin, Total 0.2 mg/dL (0.1-1.0); Blood Urea Nitrogen 9 mg/dL (8-24); Bun/Creatinine Ratio 12.9 (12.0-20.0); CO2, Blood 24 mmol/L (21-32); Calcium, Blood 9.4 mg/dL (8.5-10.1); Chloride, Blood 112 mmol/L (98-108); Globulin, Blood 3.3 g/dL (2.2-4.0); Glomerular Filtration Rate >60 (60-); Glucose, Blood 114 mg/dL (70-99); Sodium, Blood 142 mmol/L (136-145); Total Protein, Blood 6.5 g/dL (6.4-8.2); Troponin I <0.015 ng/mL (0.000-0.040)
== END 2019-08-30 22:57 | disposition home or self-care (01) ==
LOC: ER 21:02
PROVIDERS: Emergency Medicine
DX: G40.909 Epilepsy, unspecified, not intractable, without status epilepticus (principal); R00.2 Palpitations; I25.2 Old myocardial infarction; F41.9 Anxiety disorder, unspecified; J44.9 Chronic obstructive pulmonary disease, unspecified; F17.210 Nicotine dependence, cigarettes, uncomplicated; Z88.0 Allergy status to penicillin; Z88.8 Allergy status to other drugs, medicaments and biological substances; Z88.2 Allergy status to sulfonamides; Z88.1 Allergy status to other antibiotic agents; Z79.899 Other long term (current) drug therapy
CPT/HCPCS: 36415; 80053; 84484; 85025; 93005; 93010; 96374; 96375; 99284-25; J1200; J2270; J2765

== ENCOUNTER 2020-02-21 18:50 | Observation (INO) | payer OTHER ==
[~2020-02-21] VITALS: Ht 157.5 cm; Wt 63.4 kg
[~2020-02-21 18:50] MED LIST changes: -Buspirone HCl15 MG PO; -LEVSOD50 PO; -OMEPRAZOLE MAGN20 MG PO; -[UNRECOGNIZED DRUG - OTHER]
[2020-02-21 19:15] LABS: BASOPHILS ABSOLUTE AUTO 0.08 K/mm3 (0.00-0.23); BASOPHILS PERCENT AUTO 1 % (0-2); EOSINOPHILS ABSOLUTE AUTO 0.54 K/mm3 (0.00-0.68); EOSINOPHILS PERCENT AUTO 5 % (0-6); Hematocrit 40.7 % (33.0-51.0); Mean Corpuscular HGB Conc 31.9 g/dL (31.5-36.5); Mean Corpuscular Volume 94 fL (80-100); Mean Platelet Volume 9.7 fL (9.1-12.4); Platelet Count 409 K/mm3 (150-400); RDW Coefficient Variation 13.9 % (11.7-14.2); RDW Standard Deviation 48.3 fL (35.1-46.3); Red Blood Cell Count 4.33 M/mm3 (3.80-5.20); White Blood Cell Count 12.11 K/mm3 (4.00-11.30)
[2020-02-21 19:17] LABS: IMMATURE GRAN ABSOLUTE AUTO 0.03 K/mm3 (0.00-0.10); IMMATURE GRAN PERCENT AUTO 0 % (0-1); LYMPHOCYTES ABSOLUTE AUTO 4.51 K/mm3 (0.84-5.20); LYMPHOCYTES PERCENT AUTO 37 % (21-46); MONOCYTES ABSOLUTE AUTO 0.62 K/mm3 (0.16-1.47); MONOCYTES PERCENT AUTO 5 % (4-13); NEUTROPHILS ABSOLUTE AUTO 6.33 K/mm3 (1.96-9.15); NEUTROPHILS PERCENT AUTO 52 % (41-73)
[2020-02-21 19:50] LABS: Troponin I <0.015 ng/mL (0.000-0.040)
[2020-02-21 19:51] LABS: Alanine Aminotransfer (ALT/SGP 17 U/L (12-78); Albumin, Blood 3.8 g/dL (3.4-5.0); Albumin/Globulin Ratio 1.1 (0.8-1.8); Alk Phos 112 U/L (50-136); Anion Gap 6 mmol/L (6-16); Aspartate Aminotrans (AST/SGOT 19 U/L (12-37); Bilirubin, Total 0.3 mg/dL (0.1-1.0); Blood Urea Nitrogen 9 mg/dL (8-24); CO2, Blood 20 mmol/L (21-32); Calcium, Blood 10.3 mg/dL (8.5-10.1); Chloride, Blood 112 mmol/L (98-108); Globulin, Blood 3.5 g/dL (2.2-4.0); Glomerular Filtration Rate >60 (60-); Glucose, Blood 112 mg/dL (70-99); Potassium, Blood 4.2 mmol/L (3.5-5.5); Sodium, Blood 138 mmol/L (136-145); Total Protein, Blood 7.3 g/dL (6.4-8.2)
[2020-02-21] MEDS ORDERED: Buspirone HCl15 MG PO (20:53)
[2020-02-21] MEDS ORDERED: OMEPRAZOLE MAGN20 MG PO (20:54)
[2020-02-21] MEDS ORDERED: Imitrex50 MG PO (20:54)
[2020-02-21] MEDS ORDERED: EUTHYROX50 MCG PO (20:54)
[2020-02-21] MEDS ORDERED: Inderal40 MG PO (20:55)
[2020-02-21] MEDS ORDERED: QUET200 PO (20:55)
[2020-02-21] MEDS ORDERED: DOCU100 PO (20:56)
[2020-02-21] MEDS ORDERED: MONT10T PO (20:56)
[2020-02-21] MEDS ORDERED: CYCL10 PO (20:58)
[2020-02-21] MEDS ORDERED: ONDA4 PO (20:58)
[2020-02-21] MEDS ORDERED: IPRAT-ALBUT 0.5-3 ML NEB (21:07)
[2020-02-21] MEDS ORDERED: TIOT18 INH (21:07)
[2020-02-21] MEDS ORDERED: HYDHCL25 PO (21:08)
[2020-02-21] MEDS ORDERED: FISH OIL 1,001000 M1 PO (21:08)
[2020-02-21] MEDS ORDERED: Loratadine10 MG PO (21:09)
[2020-02-21 23:31] LABS: Source, Urine Clean Catch
[2020-02-21 23:37] LABS: Appearance, Urine Clear (Clear); Bilirubin, Urine Neg (Neg); Blood, Urine 1+ (Neg); Color, Urine Amber (P-Yellow); Glucose Qualitative, Urine Neg (Neg); Ketones, Urine Neg (Neg); Leukocyte Esterase, Urine Neg (Neg); Nitrite, Urine Neg (Neg); Protein, Urine Trace (Neg); Specific Gravity, Urine 1.025 (1.003-1.022); Urobilinogen, Urine NORM (Normal)
[2020-02-21 23:44] LABS: Bacteria Mod /hpf; Red Blood Cells, Urine 0-2 /hpf (0-2); Squamous Epithelial Cells Few /hpf (Few); White Blood Cells, Urine 0-2 /hpf (0-5)
[2020-02-21 23:45] LABS: Hyaline Casts 25-50 /lpf (0-2); Mucus Light (0-Heavy)
[2020-02-22 01:03] LABS: BASOPHILS ABSOLUTE AUTO 0.08 K/mm3 (0.00-0.23); BASOPHILS PERCENT AUTO 1 % (0-2); EOSINOPHILS ABSOLUTE AUTO 0.45 K/mm3 (0.00-0.68); EOSINOPHILS PERCENT AUTO 5 % (0-6); Hematocrit 34.7 % (33.0-51.0); IMMATURE GRAN ABSOLUTE AUTO 0.01 K/mm3 (0.00-0.10); IMMATURE GRAN PERCENT AUTO 0 % (0-1); LYMPHOCYTES PERCENT AUTO 38 % (21-46); MONOCYTES ABSOLUTE AUTO 0.72 K/mm3 (0.16-1.47); MONOCYTES PERCENT AUTO 7 % (4-13); Mean Corpuscular HGB 30.1 pg (26.0-34.0); Mean Corpuscular HGB Conc 31.7 g/dL (31.5-36.5); Mean Corpuscular Volume 95 fL (80-100); Mean Platelet Volume 9.7 fL (9.1-12.4); NEUTROPHILS ABSOLUTE AUTO 4.75 K/mm3 (1.96-9.15); NEUTROPHILS PERCENT AUTO 49 % (41-73); Platelet Count 345 K/mm3 (150-400); RDW Coefficient Variation 13.9 % (11.7-14.2); RDW Standard Deviation 48.9 fL (35.1-46.3); Red Blood Cell Count 3.65 M/mm3 (3.80-5.20); White Blood Cell Count 9.71 K/mm3 (4.00-11.30)
[2020-02-22 01:24] LABS: Alanine Aminotransfer (ALT/SGP 15 U/L (12-78); Albumin, Blood 3.3 g/dL (3.4-5.0); Albumin/Globulin Ratio 1.1 (0.8-1.8); Alk Phos 104 U/L (50-136); Anion Gap 4 mmol/L (6-16); Aspartate Aminotrans (AST/SGOT 11 U/L (12-37); Bilirubin, Total 0.2 mg/dL (0.1-1.0); Blood Urea Nitrogen 12 mg/dL (8-24); Bun/Creatinine Ratio 12.7 (12.0-20.0); CHOL/HDL RATIO 5.7; CO2, Blood 25 mmol/L (21-32); Calcium, Blood 9.6 mg/dL (8.5-10.1); Chloride, Blood 114 mmol/L (98-108); Cholesterol 229 mg/dL (50-200); Creatinine, Blood 0.94 mg/dL (0.40-1.00); Globulin, Blood 3.1 g/dL (2.2-4.0); Glomerular Filtration Rate >60 (60-); Glucose, Blood 122 mg/dL (70-99); HDL Cholesterol 40 mg/dL (>39); LDL/HDL RATIO 3.8; Low Density Lipoprotein Chol 151 mg/dL (0-110); Magnesium, Blood 2.2 mg/dL (1.6-2.4); Potassium, Blood 3.7 mmol/L (3.5-5.5); Sodium, Blood 143 mmol/L (136-145); Total Protein, Blood 6.4 g/dL (6.4-8.2); Triglycerides 189 mg/dL (30-160); Very Low Density Lipoprot Chol 37 mg/dL (6-32)
--- NOTE | 2020-02-22 06:20 | NUR ---
SHIFT SUMMARY PT WAS A NEW ADMIT DURING THE NIGHT, ARRIVING ON THE FLOOR AT . SHE WAS ADMITTED FOR CP THAT STARTED TWO NIGHTS AGO THAT RADIATES UP THE R SHOULDER AND NECK. PT IS STILL REPORTING PAIN AT A 5/10 ON ARRIVAL TO THE FLOOR, WHICH IS DECREASED FROM 8/10 ON ADMISSION TO THE ED. NO COMPLAINTS OF NAUSEA OR SOB. PT SLEPT WELL THROUGH THE NIGHT. RECEIVING NS @ 100 ML/HR. TELE SHOWED NSR IN THE 70S. AM BP WAS LOW AT 90/51. VITAL SIGNS OTHERWISE STABLE. NO OTHER ACUTE CHANGES IN PT CONDITION NOTED SINCE ADMISSION. WILL CONTINUE TO MONITOR AND TREAT PER EMAR UNTIL HAND OFF TO DAY SHIFT RN.
--- NOTE | 2020-02-22 16:01 | NUR ---
1130 PT CALLED RN FOR CHEST PAIN- RN WAS AT [facility] AND IS REPORTING FROM INFORMATION GATHERED WHEN SHE RETURNED. PT WAS GIVEN TRAMADOL AT THE TIME FOR DISCOMFORT. EKG OBTAINED. CALL TO DR MOBLEY, MORPHINE 2MG ORDERED AND GIVEN WITH NAHUN HINTON. CALLED AGAIN AND REPEATED MORPHINE, PAIN SUBSIDED TO A 3/10, AND IS RESTING QUIET IN BED. EKG ALSO REPEATED AND DR MOBLEY CALLED TO MADE AWARE THAT CHEST PAIN HAD SUBSIDED AND 2ND EKG COMPLETED. ALSO AWARE THAT PT HAD HER CARDIAC SCAN.
--- NOTE | 2020-02-22 18:24 | NUR ---
SUMMARY- PT HAD CHEST PRESURE 2-3 ALL DAY. ONE EPISODE OF CP 04/[address] MOBLEY AWARE. EKG REPEATED 2X, REPEATED TROPONIN- NO BUMP IN TROP. BP STABLE. MEDICATED WITH MORPHINE 2MG X2, SECOND DOSE TOOK CP BACK DOWN TO A 2 AND PT SLEPT UNTIL DINNER. PT HAD NO APPETITE AND REFUSED ALL SOLID FOODS, ACCEPTED A ENSURE FOR DINNER AND OJ FOR BREAKFAST. HAD DYE INJECTED AND SCAN, SECOND PORTION TOMORROW. WILL ENSURE PT NPO AFTER MN.
--- NOTE | 2020-02-23 05:51 | NUR ---
SHIFT SUMMARY A/O, ABLE TO MAKE NEEDS KNOWN. COOPERATIVE WITH CARE. CALLS AND ANSWERS QUESTIONS APPROPRIATELY. C/O PAIN/DISCOMFORT TO R CHEST INTO R SHOULDER AND SHOULDER BLADE; RATED 8-9/10 T/O NIGHT. MEDICATED PER EMAR; STATED ADEQUATE RELIEF EACH TIME. STATED ABLE TO SLEEP FOR MUCH OF NIGHT. NO ACUTE CHANGES NOTED OVERNIGHT. VSS/AFEBRILE. BED REMAINED IN LOWEST POSITION; INDEPENDENT IN ROOM. WCTM. REPORT TO ONCOMING RN.
--- NOTE | 2020-02-24 03:22 | NUR ---
SHIFT SUMMARY A/O, ABLE TO MAKE NEEDS KNOWN. COOPERATIVE WITH CARE. CALLS AND ANSWERS QUESTIONS APPRORIATELY. C/O PAIN/DISCOMFORT TO CHEST (VARIED), RATED 8-9/10; MEDICATED PER EMAR. NOTED ADEQUATE RELIEF EACH TIME. ABLE TO REST MUCH OF THE NIGHT. DID ASK "I WONDER IF THIS COULD BE RELATED TO ANXIETY". STATED HAS ANXIETY AND TAKES HYDROXIZINE, WHICH DOES SEEM TO HELP. ALSO STATED HAS TAKEN BENZODIAZEPINES IN THE PAST AND DOES NOT WISH TO RESUME THAT TYPE OF THERAPY. INDEPENDENT TO THE BATHROOM. TELE RUNNING SR IN 60's PER PCU RN POSTPARTUM. BED REAMINED IN LOWEST POSITION. CALL LIGHT AND BELONGINGS WITHIN REACH. WCTM. REPORT TO ONCOMING RN.
[2020-02-24 05:45] LABS: BASOPHILS ABSOLUTE AUTO 0.07 K/mm3 (0.00-0.23); BASOPHILS PERCENT AUTO 1 % (0-2); EOSINOPHILS ABSOLUTE AUTO 0.44 K/mm3 (0.00-0.68); EOSINOPHILS PERCENT AUTO 6 % (0-6); Hematocrit 36.4 % (33.0-51.0); Hemoglobin 11.5 g/dL (11.5-16.0); IMMATURE GRAN ABSOLUTE AUTO 0.02 K/mm3 (0.00-0.10); IMMATURE GRAN PERCENT AUTO 0 % (0-1); LYMPHOCYTES ABSOLUTE AUTO 2.67 K/mm3 (0.84-5.20); LYMPHOCYTES PERCENT AUTO 35 % (21-46); MONOCYTES PERCENT AUTO 8 % (4-13); Mean Corpuscular HGB 29.6 pg (26.0-34.0); Mean Corpuscular HGB Conc 31.6 g/dL (31.5-36.5); Mean Corpuscular Volume 94 fL (80-100); NEUTROPHILS ABSOLUTE AUTO 3.92 K/mm3 (1.96-9.15); NEUTROPHILS PERCENT AUTO 51 % (41-73); Platelet Count 358 K/mm3 (150-400); RDW Coefficient Variation 13.7 % (11.7-14.2); RDW Standard Deviation 47.4 fL (35.1-46.3); Red Blood Cell Count 3.89 M/mm3 (3.80-5.20); White Blood Cell Count 7.72 K/mm3 (4.00-11.30)
[2020-02-24 06:10] LABS: Anion Gap 4 mmol/L (6-16); Blood Urea Nitrogen 11 mg/dL (8-24); Bun/Creatinine Ratio 14.1 (12.0-20.0); CO2, Blood 25 mmol/L (21-32); Calcium, Blood 9.7 mg/dL (8.5-10.1); Chloride, Blood 111 mmol/L (98-108); Creatinine, Blood 0.78 mg/dL (0.40-1.00); Glomerular Filtration Rate >60 (60-); Glucose, Blood 88 mg/dL (70-99); Sodium, Blood 140 mmol/L (136-145)
[2020-02-24] MEDS ORDERED: ASPI81CH PO (10:30)
[2020-02-24] MEDS ORDERED: NICO21TP TOP (10:31)
[2020-02-24] MEDS ORDERED: ATOR80 PO (10:31)
--- NOTE | 2020-02-24 12:02 | NUR ---
PT TO DISCHARGE HOME. IV REMOVED, NO SS OF INFECTION NOTED. PT EDUCATED REGARDING MEDICATIONS. MEDS FAXED TO [facility] IN . PT INSTRUCTED TO FOLLOW UP WITH PCP. PT WALKED OUT WITH STAFF AND WAS TAKEN HOME BY .
== END 2020-02-24 10:47 | disposition home or self-care (01) ==
LOC: ER 18:50 → MEDS 18:51 → ENPENDDIS 02-24 10:00 → MEDS 02-24 10:47
PROVIDERS: Emergency Medicine; Family Medicine; Nurse Practitioner Acute Care; ADMIT Internal Medicine
DX: R07.9 Chest pain, unspecified (principal); J44.9 Chronic obstructive pulmonary disease, unspecified; K21.9 Gastro-esophageal reflux disease without esophagitis; E03.9 Hypothyroidism, unspecified; G40.909 Epilepsy, unspecified, not intractable, without status epilepticus; I25.2 Old myocardial infarction; G43.909 Migraine, unspecified, not intractable, without status migrainosus; F17.210 Nicotine dependence, cigarettes, uncomplicated; F41.9 Anxiety disorder, unspecified; D72.829 Elevated white blood cell count, unspecified; I25.119 Atherosclerotic heart disease of native coronary artery with unspecified angina pectoris; Z88.0 Allergy status to penicillin; Z88.2 Allergy status to sulfonamides; Z88.8 Allergy status to other drugs, medicaments and biological substances; Z88.1 Allergy status to other antibiotic agents; Z79.82 Long term (current) use of aspirin; Z79.899 Other long term (current) drug therapy
CPT/HCPCS: 36415; 71046; 78452; 80048; 80053; 80061; 81001; 83735; 84484; 85025; 87086; 93005; 93010; 93017; 94640; 94760; 96372; 96374; 96375; 96376; 99285-25; A9270-GY; A9500; G0378; J0706; J1650; J1885; J2270; J2405; J2785; J7030

== ENCOUNTER 2021-03-11 18:15 | Emergency (ER) | payer OTHER ==
[~2021-03-11] VITALS: Ht 157.5 cm; Wt 62.6 kg
[~2021-03-11 18:15] MED LIST changes: +ALBU2.5V5 INH; +ASPI81CH PO; +ATOR80 PO; +Buspirone HCl15 MG PO; +EUTHYROX50 MCG PO; +FISH OIL 1,001000 M1 PO; +FISH OIL PO; +IPRAT-ALBUT 0.5-3 ML NEB; +Imitrex50 MG PO; +Isosorbide Mono30 MG PO; +Loratadine10 MG PO; +NICO21TP TOP; +NICOTINE GUM2 M1 PO; +OMEPRAZOLE MAGN20 MG PO; +TIOT18 INH
[2021-03-11] MEDS ORDERED: TRIDERM28.4 GM TOP (21:07)
[2021-03-18] MEDS ORDERED: ELIQUIS5 M3 PO (20:05)
[2021-03-18] MEDS ORDERED: Norco 5-325 Ta1 EACH PO (20:07)
== END 2021-03-11 21:34 | disposition home or self-care (01) ==
LOC: ER 18:15
DX: T55.1X1A Toxic effect of detergents, accidental (unintentional), initial encounter (principal); L24.0 Irritant contact dermatitis due to detergents; J44.9 Chronic obstructive pulmonary disease, unspecified; I25.10 Atherosclerotic heart disease of native coronary artery without angina pectoris; E03.9 Hypothyroidism, unspecified; I25.2 Old myocardial infarction; F17.210 Nicotine dependence, cigarettes, uncomplicated; Z79.01 Long term (current) use of anticoagulants; Z88.0 Allergy status to penicillin; Z88.8 Allergy status to other drugs, medicaments and biological substances; Z88.2 Allergy status to sulfonamides; Z79.899 Other long term (current) drug therapy
CPT/HCPCS: 93005; 93010; 96374; 96375; 99284-25; J2060

== ENCOUNTER 2021-05-24 18:55 | Emergency (ER) | payer OTHER ==
[~2021-05-24] VITALS: Ht 157.5 cm; Wt 60.3 kg
[~2021-05-24 18:55] MED LIST changes: +ELIQUIS5 M3 PO; +TRIDERM28.4 GM TOP
[2021-05-24 19:18] LABS: Hematocrit 38.7 % (33.0-51.0); Mean Corpuscular HGB Conc 33.6 g/dL (31.5-36.5); Mean Corpuscular Volume 89 fL (80-100); Mean Platelet Volume 9.7 fL (9.1-12.4); Platelet Count 412 K/mm3 (150-400); RDW Coefficient Variation 13.2 % (11.7-14.2); RDW Standard Deviation 43.7 fL (35.1-46.3); Red Blood Cell Count 4.34 M/mm3 (3.80-5.20); White Blood Cell Count 13.04 K/mm3 (4.00-11.30)
[2021-05-24] MEDS ORDERED: LORA.5 (19:25)
[2021-05-24] MEDS ORDERED: LORA.5 PO (19:26)
[2021-05-24 19:38] LABS: Alanine Aminotransfer (ALT/SGP 29 U/L (12-78); Albumin, Blood 3.9 g/dL (3.4-5.0); Albumin/Globulin Ratio 1.1 (0.8-1.8); Alk Phos 104 U/L (50-136); Anion Gap 7 mmol/L (6-16); Aspartate Aminotrans (AST/SGOT 18 U/L (12-37); Bilirubin, Total 0.3 mg/dL (0.1-1.0); Blood Urea Nitrogen 13 mg/dL (8-24); Bun/Creatinine Ratio 16.1 (12.0-20.0); CO2, Blood 25 mmol/L (21-32); Calcium, Blood 9.7 mg/dL (8.5-10.1); Chloride, Blood 110 mmol/L (98-108); Creatinine, Blood 0.81 mg/dL (0.40-1.00); Globulin, Blood 3.7 g/dL (2.2-4.0); Glomerular Filtration Rate >60 (60-); Glucose, Blood 102 mg/dL (70-99); Potassium, Blood 3.4 mmol/L (3.5-5.5); Sodium, Blood 142 mmol/L (136-145); Total Protein, Blood 7.6 g/dL (6.4-8.2); Troponin I <0.015 ng/mL (0.000-0.040)
[2021-05-24 20:00] LABS: BAND PERCENT MAN 1 % (0-8); BASOPHILS ABSOLUTE MAN 0.13 K/mm3 (0.00-0.23); BASOPHILS PERCENT MAN 1 % (0-2); EOSINOPHILS ABSOLUTE MAN 0.52 K/mm3 (0.00-0.68); EOSINOPHILS PERCENT MAN 4 % (0-6); LYMPHOCYTES % ATYPICAL MANUAL 1 % (0-0); LYMPHOCYTES ABSOLUTE MAN 4.95 K/mm3 (0.84-5.20); LYMPHOCYTES PERCENT MAN 37 % (21-46); MONOCYTES ABSOLUTE MAN 0.65 K/mm3 (0.16-1.47); MONOCYTES PERCENT MAN 5 % (4-13); NEUTROPHILS ABSOLUTE MAN 6.78 K/mm3 (1.96-9.15); SEG NEUTROPHILS PERCENT MAN 51 % (41-73); TOTAL CELLS COUNTED 100
[2021-05-24] MEDS ORDERED: Prednisone20 MG PO (20:16)
[2021-05-24] MEDS ORDERED: Zithromax250 MG PO (20:16)
== END 2021-05-24 20:25 | disposition home or self-care (01) ==
LOC: ER 18:55
PROVIDERS: Physician Assistant
DX: J44.1 Chronic obstructive pulmonary disease with (acute) exacerbation (principal); I25.2 Old myocardial infarction; G40.909 Epilepsy, unspecified, not intractable, without status epilepticus; I25.10 Atherosclerotic heart disease of native coronary artery without angina pectoris; E03.9 Hypothyroidism, unspecified; G43.909 Migraine, unspecified, not intractable, without status migrainosus; I10 Essential (primary) hypertension; Z20.822 Contact with and (suspected) exposure to COVID-19; F17.210 Nicotine dependence, cigarettes, uncomplicated; Z88.0 Allergy status to penicillin; Z88.2 Allergy status to sulfonamides; Z88.8 Allergy status to other drugs, medicaments and biological substances; Z79.899 Other long term (current) drug therapy; Z79.01 Long term (current) use of anticoagulants; Z86.718 Personal history of other venous thrombosis and embolism
CPT/HCPCS: 36415; 71045; 80053; 84484; 85025; 93005; 93010; 94640; 96374; 99285-25; A9270; J2930

== ENCOUNTER 2021-12-20 14:48 | Emergency (ER) | payer OTHER ==
[~2021-12-20] VITALS: Ht 157.5 cm; Wt 64.9 kg
[~2021-12-20 14:48] MED LIST changes: +LORA.5; +Prednisone20 MG PO; +Zithromax250 MG PO
[2021-12-20] MEDS ORDERED: LIDO700A20 TOP (16:37)
[2021-12-20] MEDS ORDERED: Robaxin750 MG PO (16:37)
== END 2021-12-20 16:45 | disposition home or self-care (01) ==
LOC: ER 14:48
DX: S46.912A Strain of unspecified muscle, fascia and tendon at shoulder and upper arm level, left arm, initial encounter (principal); M50.321 Other cervical disc degeneration at C4-C5 level; I25.2 Old myocardial infarction; J44.9 Chronic obstructive pulmonary disease, unspecified; E03.9 Hypothyroidism, unspecified; G43.909 Migraine, unspecified, not intractable, without status migrainosus; Z88.0 Allergy status to penicillin; Z79.899 Other long term (current) drug therapy; W19.XXXA Unspecified fall, initial encounter
CPT/HCPCS: 72125; 99284-25; A9270

== ENCOUNTER 2023-06-20 19:46 | Emergency (ER) | payer OTHER ==
[~2023-06-20] VITALS: Ht 157.5 cm; Wt 64.4 kg
[~2023-06-20 19:46] MED LIST changes: +LIDO700A20 TOP; +Robaxin750 MG PO
[2023-06-20 20:46] VITALS: BP 150/75
[2023-06-20 21:14] LABS: BASOPHILS ABSOLUTE AUTO 0.06 K/mm3 (0.00-0.23); BASOPHILS PERCENT AUTO 0 % (0-2); EOSINOPHILS ABSOLUTE AUTO 0.07 K/mm3 (0.00-0.68); EOSINOPHILS PERCENT AUTO 0 % (0-6); Hematocrit 38.1 % (33.0-51.0); Hemoglobin 13.1 g/dL (11.5-16.0); IMMATURE GRAN PERCENT AUTO 1 % (0-1); LYMPHOCYTES ABSOLUTE AUTO 2.23 K/mm3 (0.84-5.20); LYMPHOCYTES PERCENT AUTO 11 % (21-46); MONOCYTES ABSOLUTE AUTO 1.47 K/mm3 (0.16-1.47); MONOCYTES PERCENT AUTO 7 % (4-13); Mean Corpuscular HGB 30.5 pg (26.0-34.0); Mean Corpuscular HGB Conc 34.4 g/dL (31.5-36.5); Mean Corpuscular Volume 89 fL (80-100); Mean Platelet Volume 10.3 fL (9.1-12.4); NEUTROPHILS ABSOLUTE AUTO 16.18 K/mm3 (1.96-9.15); NEUTROPHILS PERCENT AUTO 81 % (41-73); Platelet Count 321 K/mm3 (150-400); RDW Coefficient Variation 14.1 % (11.7-14.2); RDW Standard Deviation 45.4 fL (35.1-46.3); White Blood Cell Count 20.11 K/mm3 (4.00-11.30)
[2023-06-20 21:36] LABS: Albumin, Blood 3.2 g/dL (3.4-5.0); Albumin/Globulin Ratio 0.8 (0.8-1.8); Bilirubin, Total 0.4 mg/dL (0.1-1.0); Bun/Creatinine Ratio 14.3 (12.0-20.0); Creatinine, Blood 0.84 mg/dL (0.40-1.00); Globulin, Blood 3.9 g/dL (2.2-4.0); Potassium, Blood 3.5 mmol/L (3.5-5.5); Total Protein, Blood 7.1 g/dL (6.4-8.2)
== END 2023-06-20 22:14 | disposition home or self-care (01) ==
LOC: ER 19:46
PROVIDERS: Emergency Medicine
DX: R10.30 Lower abdominal pain, unspecified (principal); D72.829 Elevated white blood cell count, unspecified; Z88.0 Allergy status to penicillin; Z88.8 Allergy status to other drugs, medicaments and biological substances; Z88.1 Allergy status to other antibiotic agents; Z88.2 Allergy status to sulfonamides; Z79.899 Other long term (current) drug therapy; Z79.52 Long term (current) use of systemic steroids; G40.909 Epilepsy, unspecified, not intractable, without status epilepticus; J44.9 Chronic obstructive pulmonary disease, unspecified; F17.210 Nicotine dependence, cigarettes, uncomplicated
CPT/HCPCS: 80053; 83690; 85025; A9270; J1885; J2405; J7120

== ENCOUNTER 2023-06-21 19:11 | Inpatient (IN) | payer OTHER, MEDICARE ==
[~2023-06-21] VITALS: Ht 157.5 cm; Wt 53.3 kg
[~2023-06-21 19:11] MED LIST changes: +FISH OIL 1,0001 EA10 PO; -FISH OIL PO
[2023-06-21 20:04] LABS: BASOPHILS ABSOLUTE AUTO 0.06 K/mm3 (0.00-0.23); BASOPHILS PERCENT AUTO 0 % (0-2); EOSINOPHILS ABSOLUTE AUTO 0.01 K/mm3 (0.00-0.68); EOSINOPHILS PERCENT AUTO 0 % (0-6); IMMATURE GRAN ABSOLUTE AUTO 0.08 K/mm3 (0.00-0.10); IMMATURE GRAN PERCENT AUTO 0 % (0-1); LYMPHOCYTES ABSOLUTE AUTO 2.34 K/mm3 (0.84-5.20); LYMPHOCYTES PERCENT AUTO 11 % (21-46); MONOCYTES ABSOLUTE AUTO 1.82 K/mm3 (0.16-1.47); MONOCYTES PERCENT AUTO 9 % (4-13); Mean Corpuscular HGB 30.3 pg (26.0-34.0); Mean Corpuscular HGB Conc 34.3 g/dL (31.5-36.5); Mean Corpuscular Volume 88 fL (80-100); Mean Platelet Volume 9.9 fL (9.1-12.4); NEUTROPHILS ABSOLUTE AUTO 16.44 K/mm3 (1.96-9.15); NEUTROPHILS PERCENT AUTO 79 % (41-73); Platelet Count 298 K/mm3 (150-400); RDW Coefficient Variation 14.1 % (11.7-14.2); RDW Standard Deviation 45.7 fL (35.1-46.3); Red Blood Cell Count 3.96 M/mm3 (3.80-5.20); White Blood Cell Count 20.75 K/mm3 (4.00-11.30)
[2023-06-21 20:26] LABS: Albumin, Blood 2.9 g/dL (3.4-5.0); Albumin/Globulin Ratio 0.8 (0.8-1.8); Bilirubin, Total 0.3 mg/dL (0.1-1.0); Bun/Creatinine Ratio 16.9 (12.0-20.0); Calcium, Blood 8.5 mg/dL (8.5-10.1); Creatinine, Blood 0.89 mg/dL (0.40-1.00); Globulin, Blood 3.8 g/dL (2.2-4.0); Potassium, Blood 3.5 mmol/L (3.5-5.5); Total Protein, Blood 6.7 g/dL (6.4-8.2)
[2023-06-21 23:31] VITALS: BP 101/70
--- NOTE | 2023-06-22 04:20 | NUR ---
SHIFT SUMMARY LUCIO ARRIVED FROM THE ED AROUND 2330 WITH A DIAGNOSIS OF DIVERTICULITIS. SHE WAS ALERT AND FULLY ORIENTED AND ABLE TO AMBULATE TO THE BED ON HER OWN. ADMIT COMPLETED, PT MEDICATED PER EMAR FOR PAIN AND NAUSEA. NO ACUTE EVENTS THIS SHIFT. PT IS RESTING IN BED AT A LOWERED POSITION WITH THE CALL LIGHT IN REACH.
[2023-06-22 05:30] VITALS: BP 93/49
[2023-06-22 05:42] LABS: BASOPHILS ABSOLUTE AUTO 0.07 K/mm3 (0.00-0.23); BASOPHILS PERCENT AUTO 0 % (0-2); EOSINOPHILS ABSOLUTE AUTO 0.12 K/mm3 (0.00-0.68); EOSINOPHILS PERCENT AUTO 1 % (0-6); Hematocrit 32.1 % (33.0-51.0); IMMATURE GRAN PERCENT AUTO 1 % (0-1); LYMPHOCYTES ABSOLUTE AUTO 2.71 K/mm3 (0.84-5.20); LYMPHOCYTES PERCENT AUTO 14 % (21-46); MONOCYTES ABSOLUTE AUTO 1.58 K/mm3 (0.16-1.47); MONOCYTES PERCENT AUTO 8 % (4-13); Mean Corpuscular HGB 30.5 pg (26.0-34.0); Mean Corpuscular HGB Conc 34.3 g/dL (31.5-36.5); Mean Corpuscular Volume 89 fL (80-100); Mean Platelet Volume 10.7 fL (9.1-12.4); NEUTROPHILS ABSOLUTE AUTO 15.51 K/mm3 (1.96-9.15); NEUTROPHILS PERCENT AUTO 77 % (41-73); Platelet Count 276 K/mm3 (150-400); RDW Coefficient Variation 14.2 % (11.7-14.2); RDW Standard Deviation 45.7 fL (35.1-46.3); Red Blood Cell Count 3.61 M/mm3 (3.80-5.20); White Blood Cell Count 20.09 K/mm3 (4.00-11.30)
[2023-06-22 06:07] LABS: Albumin, Blood 2.6 g/dL (3.4-5.0); Albumin/Globulin Ratio 0.8 (0.8-1.8); Bilirubin, Total 0.4 mg/dL (0.1-1.0); Bun/Creatinine Ratio 16.6 (12.0-20.0); Creatinine, Blood 0.73 mg/dL (0.40-1.00); Globulin, Blood 3.4 g/dL (2.2-4.0); Potassium, Blood 3.6 mmol/L (3.5-5.5)
[2023-06-22 07:32] VITALS: BP 70/60
[2023-06-22 07:39] VITALS: BP 96/68
[2023-06-22 10:22] LABS: Influenza A, PCR NEGATIVE (NEGATIVE); Influenza B, PCR NEGATIVE (NEGATIVE); Resp Syncytial Virus, PCR NEGATIVE (NEGATIVE); SARS-Cov-2 (COVID-19) PCR, MMC NEGATIVE (NEGATIVE)
[2023-06-22 16:14] VITALS: BP 86/54
[2023-06-22 19:12] VITALS: BP 97/71
--- NOTE | 2023-06-22 19:23 | NUR ---
SUMMARY- PAIN MODERATELY CONTROLLED W/NEW EMAR MEDS AFTER PAIN MEDS WERE CHANGED THIS MORNING TO DILAUDID AND NORCO Q 4. PT TOLERATED CLEARS. PT ATE MINIMALLY. NO EMESIS. X1 TO THE BATHROOM. AAOX4.
[2023-06-23 04:24] VITALS: BP 106/73
--- NOTE | 2023-06-23 04:30 | NUR ---
SHIFT SUMMARY PATIENT IS ALERT AND ORIENTED. PATIENT HAS HAD NO ACUTE EVENTS THIS SHIFT. VITAL SIGNS REVIEWED. PATIENT HAS HAD SOFT BP ALL SHIFT. PATIENT HAS HAD ABX INFUSED AND FLUIDS INFUSED ORDERED. PATIENT HAS COMPLAINED OF PAIN. MEDICATED PER EMAR. PATIENT HAS NOT COMPLAINED OF SOB, NAUSEA, OR VOMITTING THIS SHIFT. PATIENT HAS BEEN IND IN THE ROOM AND HAS MADE THEIR NEEDS MET. BED IN LOCKED AND LOWEST POSITION. CALL LIGHT IN PLACE. WILL MONITOR UNTIL SHIFT CHANGE.
[2023-06-23 05:54] LABS: BASOPHILS ABSOLUTE AUTO 0.06 K/mm3 (0.00-0.23); BASOPHILS PERCENT AUTO 0 % (0-2); EOSINOPHILS ABSOLUTE AUTO 0.31 K/mm3 (0.00-0.68); EOSINOPHILS PERCENT AUTO 2 % (0-6); Hematocrit 33.7 % (33.0-51.0); Hemoglobin 11.1 g/dL (11.5-16.0); IMMATURE GRAN ABSOLUTE AUTO 0.06 K/mm3 (0.00-0.10); IMMATURE GRAN PERCENT AUTO 0 % (0-1); LYMPHOCYTES ABSOLUTE AUTO 2.46 K/mm3 (0.84-5.20); LYMPHOCYTES PERCENT AUTO 17 % (21-46); MONOCYTES ABSOLUTE AUTO 1.05 K/mm3 (0.16-1.47); MONOCYTES PERCENT AUTO 7 % (4-13); Mean Corpuscular HGB 30.4 pg (26.0-34.0); Mean Corpuscular HGB Conc 32.9 g/dL (31.5-36.5); Mean Corpuscular Volume 92 fL (80-100); Mean Platelet Volume 10.4 fL (9.1-12.4); NEUTROPHILS ABSOLUTE AUTO 10.45 K/mm3 (1.96-9.15); NEUTROPHILS PERCENT AUTO 73 % (41-73); Platelet Count 285 K/mm3 (150-400); RDW Coefficient Variation 14.2 % (11.7-14.2); RDW Standard Deviation 48.6 fL (35.1-46.3); Red Blood Cell Count 3.65 M/mm3 (3.80-5.20); White Blood Cell Count 14.39 K/mm3 (4.00-11.30)
[2023-06-23 06:23] LABS: Bun/Creatinine Ratio 9.9 (12.0-20.0); Calcium, Blood 8.2 mg/dL (8.5-10.1); Creatinine, Blood 0.71 mg/dL (0.40-1.00); Potassium, Blood 3.3 mmol/L (3.5-5.5)
[2023-06-23 07:48] VITALS: BP 91/67
[2023-06-23 10:11] LABS: Magnesium, Blood 2.1 mg/dL (1.6-2.4); Phosphorus, Blood 1.7 mg/dL (2.5-4.9)
[2023-06-23 15:24] VITALS: BP 91/71
--- NOTE | 2023-06-23 16:58 | NUR ---
SUMMARY- NO ACUTE EVENTS THIS SHIFT. PAIN WELL CONTROLLED W/EMAR PAIN MEDS. PT EXPLAINED ATIVAN PO "DEFINITELY HELPED" WITH HER NICOTINE CRAVINGS. NICOTINE PATCH PLACED ON PT'S L DELTOID. NO NAUSEA THIS SHIFT. X1 ASSIST TO BATHROOM. AAOX4.
[2023-06-23 18:59] VITALS: BP 106/76
[2023-06-24] VITALS (9 sets, daily range): BP systolic 75–106; BP diastolic 59–78
--- NOTE | 2023-06-24 04:39 | NUR ---
SHIFT SUMMARY PATIENT IS ALERT AND ORIENTED. PATIENT HAS HAD NO ACUTE EVENTS THIS SHIFT. VITAL SIGNS REVIEWED. PATIENT HAS BEEN HAVING PAIN THIS SHIFT. MEDICATED PER EMAR. PATIENT HAS NOT COMPLAINED OF SOB, NAUSEA OR VOMITTING THIS SHIFT. PATIENT HAS BEEN A STANDBY ASSIST TO BATHROOM THIS SHIFT. IV ABX AND FLUIDS INFUSING ORDERED. BED IN LOCKED POSITION. CALL LIGHT IN PLACE. WILL MONITOR UNTIL SHIFT CHANGE.
[2023-06-24 05:37] LABS: BASOPHILS ABSOLUTE AUTO 0.06 K/mm3 (0.00-0.23); BASOPHILS PERCENT AUTO 1 % (0-2); EOSINOPHILS ABSOLUTE AUTO 0.19 K/mm3 (0.00-0.68); EOSINOPHILS PERCENT AUTO 2 % (0-6); Hematocrit 33.7 % (33.0-51.0); Hemoglobin 11.1 g/dL (11.5-16.0); IMMATURE GRAN ABSOLUTE AUTO 0.05 K/mm3 (0.00-0.10); IMMATURE GRAN PERCENT AUTO 0 % (0-1); LYMPHOCYTES ABSOLUTE AUTO 1.96 K/mm3 (0.84-5.20); LYMPHOCYTES PERCENT AUTO 15 % (21-46); MONOCYTES ABSOLUTE AUTO 0.95 K/mm3 (0.16-1.47); MONOCYTES PERCENT AUTO 8 % (4-13); Mean Corpuscular HGB 30.2 pg (26.0-34.0); Mean Corpuscular HGB Conc 32.9 g/dL (31.5-36.5); Mean Corpuscular Volume 92 fL (80-100); Mean Platelet Volume 9.8 fL (9.1-12.4); NEUTROPHILS PERCENT AUTO 75 % (41-73); Platelet Count 309 K/mm3 (150-400); RDW Coefficient Variation 14.3 % (11.7-14.2); RDW Standard Deviation 48.4 fL (35.1-46.3); Red Blood Cell Count 3.67 M/mm3 (3.80-5.20); White Blood Cell Count 12.71 K/mm3 (4.00-11.30)
[2023-06-24 06:02] LABS: Albumin, Blood 2.3 g/dL (3.4-5.0); Anion Gap 7 mmol/L (6-16); Blood Urea Nitrogen 5 mg/dL (8-24); Bun/Creatinine Ratio 7.3 (12.0-20.0); CO2, Blood 21 mmol/L (21-32); Calcium, Blood 8.3 mg/dL (8.5-10.1); Chloride, Blood 114 mmol/L (98-108); Creatinine, Blood 0.69 mg/dL (0.40-1.00); Glomerular Filtration Rate 97 (60-); Glucose, Blood 103 mg/dL (70-99); Phosphorus, Blood 1.5 mg/dL (2.5-4.9); Potassium, Blood 3.4 mmol/L (3.5-5.5); Sodium, Blood 142 mmol/L (136-145)
--- NOTE | 2023-06-24 07:10 | NUR ---
ASSUMMED CARE OF PT- BBEDSIDE REPORT COMPLETED WITH NIGHT RN. PER REPORT THE PT HAS BEEN RECIEVING IV DILAUDID QQ4 AND PO NORCO Q4 WELL XANAX. NEXT DILAUDID DOSE IS AVAILABLE AT 0800. PT IN BED, APPEARS RELAXED, NO S&S OF DISTRESS NOTED.
--- NOTE | 2023-06-24 07:46 | NUR ---
SPOKE TO DR MOBLEY- PT MORNING BP WAS 81/65, VITALS TREND SHOWS SYSTOLIC PRESSURES IN THE 105-90'S FOR THE LAST 2 DAYS. SPOKE TO PT ABOUT POSSIBLY NEEDING SOME FLUIDS TO BOLSTER THE BP. PT BECAME AGITATED TELLING THIS RN SHE IS NOT GOING TO "LAY HERE IN PAIN." DR MOBLEY IS AWARE. RECIEVED ORDER FOR 500ML FLIUD BOLUS.
--- NOTE | 2023-06-24 18:02 | NUR ---
SHIFT SUMMARY- PT IS ALERT AND ORIENTED, SHE IS INDEPENDENT IN THE ROOM. IV DILAUDID DC'D TODAY. PT HAS HAD SOFT BP'S T/O THE SHIFT. 80'S/50'S, ASYMPTOMATIC WITH EACH EPISODE, FLUID BOLUS WAS GIVEN THIS MORNING AND IVF HAVE BEEN RUNNING CONCURRENTLY WITH ALL ABX. PO HYDROCODONE SEEMS TO WORK WELL FOR THE PT AT 2 TABS PER DOSE, THERE WERE 5 HOURS BETWEEN REQUESTS FOR PAIN MEDS. LLAST FOLLOW UP PT STATED PAIN WAS 2/10. PT CURRENTLY SITTING AT THHE EOB EATING DINNER, NO S&S OF DISTRESS NOTED.
[2023-06-25 04:18] VITALS: BP 82/59
--- NOTE | 2023-06-25 04:24 | NUR ---
PATIENT IS A/Ox4, PLEASANT/COOPERATIVE. C/O LOWER ABD PAIN/DISCOMFORT, PAIN MANAGED PER MAR. CONTINUES TO HAVE LOW BP, DENIES FEELING DIZZY NOR LIGHT HEADED. PATIENT STATES, "IT'S ALWAYS LOW." ENCOURAGED PO FLUIDS, CONTINUES ON INTRAVENOUS FLUIDS, NS AT 100mL/HR. INDEPENDENT IN ROOM. NO ACUTE CHANGES NOTED OVERNIGHT. BED LOCKED AND IN LOWEST POSITION, CALL LIGHT WITHIN REACH.
[2023-06-25 06:15] LABS: BASOPHILS ABSOLUTE AUTO 0.03 K/mm3 (0.00-0.23); BASOPHILS PERCENT AUTO 0 % (0-2); EOSINOPHILS ABSOLUTE AUTO 0.43 K/mm3 (0.00-0.68); EOSINOPHILS PERCENT AUTO 5 % (0-6); Hematocrit 27.6 % (33.0-51.0); Hemoglobin 9.3 g/dL (11.5-16.0); IMMATURE GRAN ABSOLUTE AUTO 0.03 K/mm3 (0.00-0.10); IMMATURE GRAN PERCENT AUTO 0 % (0-1); LYMPHOCYTES ABSOLUTE AUTO 1.45 K/mm3 (0.84-5.20); LYMPHOCYTES PERCENT AUTO 17 % (21-46); MONOCYTES ABSOLUTE AUTO 0.86 K/mm3 (0.16-1.47); MONOCYTES PERCENT AUTO 10 % (4-13); Mean Corpuscular HGB 30.3 pg (26.0-34.0); Mean Corpuscular HGB Conc 33.7 g/dL (31.5-36.5); Mean Corpuscular Volume 90 fL (80-100); Mean Platelet Volume 9.8 fL (9.1-12.4); NEUTROPHILS PERCENT AUTO 68 % (41-73); Platelet Count 305 K/mm3 (150-400); RDW Coefficient Variation 14.2 % (11.7-14.2); RDW Standard Deviation 46.8 fL (35.1-46.3); Red Blood Cell Count 3.07 M/mm3 (3.80-5.20)
[2023-06-25 06:54] LABS: Albumin, Blood 1.9 g/dL (3.4-5.0); Anion Gap 4 mmol/L (6-16); Blood Urea Nitrogen 2 mg/dL (8-24); Bun/Creatinine Ratio 3.1 (12.0-20.0); CO2, Blood 22 mmol/L (21-32); Calcium, Blood 7.8 mg/dL (8.5-10.1); Chloride, Blood 118 mmol/L (98-108); Creatinine, Blood 0.64 mg/dL (0.40-1.00); Glomerular Filtration Rate 99 (60-); Glucose, Blood 105 mg/dL (70-99); Magnesium, Blood 1.9 mg/dL (1.6-2.4); Phosphorus, Blood 2.7 mg/dL (2.5-4.9); Potassium, Blood 3.6 mmol/L (3.5-5.5); Sodium, Blood 144 mmol/L (136-145)
--- NOTE | 2023-06-25 07:19 | NUR ---
ASSUMED CARE OF PT- BEDSIDE REPORT COMPLETED WITH NIGHT RN. PT LYING IN BED, APPPEARS TO BE COMFORTABLE. PER REPORT BP'S CONTINUED TO BE SOFT T/O THE NIGHT. PT WOKE TO STAFF VOICESS AT THE TIME OF REPORT. SHORTLY AFTER SHE WAS UP INDEPENDENT TO THE BATHROOM. PT HAD THREE SMALL STOOLS YESTERDAY AFTER RECIEVING SENNA. PT APPPEARS COMFORTABLE AND PLEASENT THIS MORNING. PER REPORT THERE WAS NO NAUSEA T/O THE NIGHT. PT DIET WAS ADVANVED TO FULL LIQUID AT DINNER LAST NIGHT. THE PT LOVED THE SOUP SO MUCH SHHE HHAD A SECOND BOWL, SHE C/O MINOR CRAMPING AT SHIFT CHANGE, BUT DENIED ANY NAUSEA. LAST PAIN MED WAS AROUND 0130.
[2023-06-25 07:53] VITALS: BP 87/63
[2023-06-25 11:35] LABS: Percent Saturation 7.3 % (15.0-50.0)
[2023-06-25] MEDS ORDERED: Norco 5-325 Ta1 EACH PO (11:38)
[2023-06-25] MEDS ORDERED: LEVO750 PO (11:38)
[2023-06-25] MEDS ORDERED: METR500 PO (11:40)
[2023-06-25] MEDS ORDERED: Nicoderm Cq1 EAC1 TOP (11:43)
[2023-06-25] MEDS ORDERED: SENN187 PO (11:44)
--- NOTE | 2023-06-25 12:47 | NUR ---
DISCHARGE NOTE- PT AND SPOUSE WERER GIVEN VERBAL AND WRITTEN DISCHARGE INSTRUCTIONS AND ACKNOWLEDGED UNDERSTANDDING OF THEM. IV DC'D AND PT ESCORTED OUT VIA WC, NO S&S OF DISTRESS NOTED AT THE TIME OF DISCHARGE.
== END 2023-06-25 12:47 | disposition home or self-care (01) | DRG 392 ==
LOC: ER 19:11 → MEDS 19:12
PROVIDERS: Emergency Medicine; Internal Medicine; ADMIT Internal Medicine
DX: K57.32 Diverticulitis of large intestine without perforation or abscess without bleeding (principal); K56.699 Other intestinal obstruction unspecified as to partial versus complete obstruction; J44.1 Chronic obstructive pulmonary disease with (acute) exacerbation; I95.9 Hypotension, unspecified; G40.909 Epilepsy, unspecified, not intractable, without status epilepticus; G43.909 Migraine, unspecified, not intractable, without status migrainosus; E03.9 Hypothyroidism, unspecified; D64.9 Anemia, unspecified; F17.210 Nicotine dependence, cigarettes, uncomplicated; I25.10 Atherosclerotic heart disease of native coronary artery without angina pectoris; F41.9 Anxiety disorder, unspecified; Z88.0 Allergy status to penicillin; I25.2 Old myocardial infarction; Z90.89 Acquired absence of other organs; Z98.51 Tubal ligation status; Z87.81 Personal history of (healed) traumatic fracture; Z88.8 Allergy status to other drugs, medicaments and biological substances; Z79.899 Other long term (current) drug therapy; Z79.2 Long term (current) use of antibiotics; Z79.890 Hormone replacement therapy; Z86.79 Personal history of other diseases of the circulatory system; Z20.822 Contact with and (suspected) exposure to COVID-19
CPT/HCPCS: 0241U; 36415; 71045; 74177; 80048; 80053; 80069; 82607; 82728; 82746; 83540; 83550; 83605; 83735; 83880; 84100; 85025; 87040; 94640; 94664; 94760; 94762; 96361; 96365-59; 96366; 96367; 96368; 96372; 96375; 96376; 99285-25; A9270; G0378; J0744; J1170; J1650; J1956; J2405; J2765; J3010; J3480; J7030; J7040; J7060; Q9967

== ENCOUNTER 2023-06-27 19:08 | Inpatient (IN) | payer OTHER ==
[~2023-06-27] VITALS: Ht 157.5 cm; Wt 69.2 kg
[~2023-06-27 19:08] MED LIST changes: +Nicoderm Cq1 EAC1 TOP; +SENN187 PO
[2023-06-27 19:56] LABS: Hematocrit 36.2 % (33.0-51.0); Hemoglobin 12.2 g/dL (11.5-16.0); Mean Corpuscular HGB 30.3 pg (26.0-34.0); Mean Corpuscular HGB Conc 33.7 g/dL (31.5-36.5); Mean Corpuscular Volume 90 fL (80-100); Mean Platelet Volume 9.1 fL (9.1-12.4); Platelet Count 408 K/mm3 (150-400); RDW Coefficient Variation 14.4 % (11.7-14.2); RDW Standard Deviation 47.7 fL (35.1-46.3); Red Blood Cell Count 4.03 M/mm3 (3.80-5.20); White Blood Cell Count 11.45 K/mm3 (4.00-11.30)
[2023-06-27 20:14] LABS: Albumin, Blood 2.7 g/dL (3.4-5.0); Albumin/Globulin Ratio 0.6 (0.8-1.8); Bilirubin, Total 0.3 mg/dL (0.1-1.0); Bun/Creatinine Ratio 6.2 (12.0-20.0); Calcium, Blood 8.9 mg/dL (8.5-10.1); Creatinine, Blood 0.65 mg/dL (0.40-1.00); Globulin, Blood 4.4 g/dL (2.2-4.0); Potassium, Blood 3.6 mmol/L (3.5-5.5); Total Protein, Blood 7.1 g/dL (6.4-8.2)
[2023-06-27 20:24] LABS: BAND PERCENT MAN 14 % (0-8); BASOPHILS PERCENT MAN 0 % (0-2); EOSINOPHILS ABSOLUTE MAN 0.68 K/mm3 (0.00-0.68); EOSINOPHILS PERCENT MAN 6 % (0-6); LYMPHOCYTES % ATYPICAL MANUAL 1 % (0-0); LYMPHOCYTES ABSOLUTE MAN 1.83 K/mm3 (0.84-5.20); LYMPHOCYTES PERCENT MAN 15 % (21-46); METAMYELOCYTE ABSOLUTE MAN 0.11 K/mm3 (0.00-0.00); METAMYELOCYTE PERCENT MAN 1 % (0-0); MONOCYTES ABSOLUTE MAN 0.57 K/mm3 (0.16-1.47); MONOCYTES PERCENT MAN 5 % (4-13); NEUTROPHILS ABSOLUTE MAN 8.24 K/mm3 (1.96-9.15); SEG NEUTROPHILS PERCENT MAN 58 % (41-73); TOTAL CELLS COUNTED 100
[2023-06-28 01:07] VITALS: BP 127/87
--- NOTE | 2023-06-28 02:38 | NUR ---
CAME UP FROM ED AT 0105, IV ANTIBIOTICS RUNNING STARTED DOWN IN ED. PRN DILAUDID GIVEN IN ED. A/OX4 ROOM AIR. ABLE TO MAKE NEEDS KNOWN. STATES FEEL GENERALIZED WEAKNESS, ABLE TO AMBULATE TO BATHROOM STAND BY. WILL START IV FLUIDS ONCE ANTIBIOTICS FINISH. CALL LIGHT IN REACH, NONSKID SOCKS ON. SKIN INTACT. DENIES CHEST PAIN/SOB. ABDOMINAL PAIN TO LLQ
[2023-06-28 05:53] VITALS: BP 125/82
[2023-06-28 07:36] VITALS: BP 109/69
[2023-06-28 09:27] LABS: Hematocrit 31.1 % (33.0-51.0); Hemoglobin 10.5 g/dL (11.5-16.0); Mean Corpuscular HGB 30.4 pg (26.0-34.0); Mean Corpuscular HGB Conc 33.8 g/dL (31.5-36.5); Mean Corpuscular Volume 90 fL (80-100); Mean Platelet Volume 8.8 fL (9.1-12.4); Platelet Count 410 K/mm3 (150-400); RDW Coefficient Variation 14.6 % (11.7-14.2); RDW Standard Deviation 47.9 fL (35.1-46.3); Red Blood Cell Count 3.45 M/mm3 (3.80-5.20); White Blood Cell Count 10.31 K/mm3 (4.00-11.30)
[2023-06-28 09:49] LABS: Albumin, Blood 2.3 g/dL (3.4-5.0); Albumin/Globulin Ratio 0.6 (0.8-1.8); Bilirubin, Total 0.2 mg/dL (0.1-1.0); Bun/Creatinine Ratio 3.9 (12.0-20.0); Calcium, Blood 7.9 mg/dL (8.5-10.1); Creatinine, Blood 0.52 mg/dL (0.40-1.00); Globulin, Blood 3.9 g/dL (2.2-4.0); Potassium, Blood 3.3 mmol/L (3.5-5.5); Total Protein, Blood 6.2 g/dL (6.4-8.2)
[2023-06-28 10:00] LABS: BASOPHILS PERCENT MAN 0 % (0-2); EOSINOPHILS ABSOLUTE MAN 0.82 K/mm3 (0.00-0.68); EOSINOPHILS PERCENT MAN 8 % (0-6); LYMPHOCYTES % ATYPICAL MANUAL 2 % (0-0); LYMPHOCYTES ABSOLUTE MAN 2.47 K/mm3 (0.84-5.20); LYMPHOCYTES PERCENT MAN 22 % (21-46); MONOCYTES ABSOLUTE MAN 1.13 K/mm3 (0.16-1.47); MONOCYTES PERCENT MAN 11 % (4-13); NEUTROPHILS ABSOLUTE MAN 5.87 K/mm3 (1.96-9.15); SEG NEUTROPHILS PERCENT MAN 57 % (41-73); TOTAL CELLS COUNTED 100
--- NOTE | 2023-06-28 12:12 | NUR ---
ASSUMED CARE OF PT. PT A&OX4 AND AMBULATES INDEPENDENTLY. PT COMPLAINS OF PAIN, MEDICATED PER EMAR. DR JACOBSON AT BEDSIDE TO SEE PT. VSS. NO ACUTE EVENTS AT THIS TIME
--- NOTE | 2023-06-28 15:26 | NUR ---
SHIFT SUMMARY PT A&OX4. PT EXPERIENCING ABDOMINAL PAIN, MEDICATED PER EMAR FOR THE PAIN. VSS. NO ACUTE EVENT AT THIS TIME. PT LEFT IN A POSITION OF SAFETY WITH BED LOCKED AND IN LOWEST POSITION, NONSKID SOCKS IN PLACE, ROOM FREE OF DEBRIS, AND CALL LIGHT WITHIN REACH.
[2023-06-28 16:00] VITALS: BP 113/78
--- NOTE | 2023-06-29 06:24 | NUR ---
ATTEMPTED TO CALL DR. ANGEL TWICE TO NOTIFY PATIENTS REFUSAL FOR IV. AND TO SEE IF WE COULD SWITCH OVER A COUPLE IV MEDS TO PO. PATIENT CURRENTLY HAS NO IV ACCESS. MYSELF AND TWO OTHER NURSES ATTEMPTED A PIV WITH NO SUCCESS. PATIENT WAS TOLD SOMEONE COULD COME BY LATER TO ATTEMPT WITH AN ULTRASOUND BUT SHE REFUSED TO BE POKED AGAIN.
--- NOTE | 2023-06-29 06:37 | NUR ---
DR. ANGEL GOT BACK TO ME, IV MEDS CHANGED TO PO. SAME DOSING SAME FREQUENCY.
[2023-06-29 07:12] VITALS: BP 118/89
--- NOTE | 2023-06-29 09:42 | NUR ---
0803- THIS RN CALLED DR. MCCALL TO INFORM HER THAT PT'S PAIN IS NOT WELL CONTROLLED. MD DID NOT ANSWER PHONE.
--- NOTE | 2023-06-29 09:43 | NUR ---
2438- RN CALLED DR. MCCALL AGAIN TO INFORM HER PT IS WANTING TO LEAVE AMA IF HER PAIN IS NOT "MORE CONTROLLED." RN ASKED IF THERE WAS ANOTHER PO PAIN MED WE COULD ADD AND OR IF WE COULD ADD ATIVAN PO TO HELP WITH PT'S NICOTINE WITHDRAWL/ANXIETY (ATIVAN WAS ADDED LAST ADMISSION TO HELP W/NICOTINE/ANXIETY). GAVE NO ORDERS. STATED, "I AM ROUNDING ON PT'S RIGHT NOW AND I WILL COME VISIT HER." RN ASKED IF THERE WAS A TIMEFRAME THAT COULD BE GIVEN TO THE PT FOR A VISIT TO HELP HER STAY AND NOT LEAVE AMA. DR. KO REPLIED, "I WILL BE THERE WHEN I CAN."
--- NOTE | 2023-06-29 09:49 | NUR ---
0855- RN INFORMED PT MD WOULD BE IN TO VISIT HER "WHEN SHE CAN." PT STATED, "I AM IN UNCONTROLLED PAIN HERE, WHY WOULDN'T I BE IN UNCONTROLLED PAIN AT HOME?" PT ASKED FOR AMA PAPERS. PT SIGNED AMA PAPERS AFTER RN INFORMED PT OF RISKS VS BENEFITS. PT DOES NOT HAVE AN IV.
--- NOTE | 2023-06-29 09:51 | NUR ---
0900- RN TRIED CALLING DR. KO TO INFORM HER PT LEFT AMA. DID NOT ANSWER PHONE.
--- NOTE | 2023-06-29 09:52 | NUR ---
0915- DR. KO FOUND RN IN [facility] AND ASKED WHERE THE PT IN [facility] IS. RN INFORMED HER SHE LEFT [facility] CAMP.
== END 2023-06-29 09:08 | disposition left against medical advice (07) | DRG 392 ==
LOC: ER 19:08 → MEDS 19:09
PROVIDERS: Emergency Medicine; Student in an Organized Health Care Education/Training Program; ADMIT Family Medicine
DX: K57.32 Diverticulitis of large intestine without perforation or abscess without bleeding (principal); C18.7 Malignant neoplasm of sigmoid colon; Z53.29 Procedure and treatment not carried out because of patient's decision for other reasons; F17.210 Nicotine dependence, cigarettes, uncomplicated; J44.9 Chronic obstructive pulmonary disease, unspecified; E03.9 Hypothyroidism, unspecified; R91.8 Other nonspecific abnormal finding of lung field; I25.2 Old myocardial infarction; Z88.0 Allergy status to penicillin; Z88.2 Allergy status to sulfonamides; Z88.8 Allergy status to other drugs, medicaments and biological substances; Z79.890 Hormone replacement therapy
CPT/HCPCS: 36415; 74176; 80053; 85025; 94760; 96361; 96365; 96366; 96367; 96375; 96376; 99285-25; A9270; G0378; J0744; J1170; J2405; J7030

== ENCOUNTER 2024-03-14 20:03 | Emergency (ER) | payer OTHER ==
[~2024-03-14] VITALS: Ht 157.5 cm; Wt 61.2 kg
[2024-03-14 20:52] LABS: BASOPHILS ABSOLUTE AUTO 0.04 K/mm3 (0.00-0.23); BASOPHILS PERCENT AUTO 0 % (0-2); EOSINOPHILS ABSOLUTE AUTO 0.09 K/mm3 (0.00-0.68); EOSINOPHILS PERCENT AUTO 1 % (0-6); Hematocrit 36.3 % (33.0-51.0); Hemoglobin 12.2 g/dL (11.5-16.0); IMMATURE GRAN ABSOLUTE AUTO 0.05 K/mm3 (0.00-0.10); IMMATURE GRAN PERCENT AUTO 0 % (0-1); LYMPHOCYTES ABSOLUTE AUTO 2.55 K/mm3 (0.84-5.20); LYMPHOCYTES PERCENT AUTO 17 % (21-46); MONOCYTES ABSOLUTE AUTO 0.76 K/mm3 (0.16-1.47); MONOCYTES PERCENT AUTO 5 % (4-13); Mean Corpuscular HGB 29.8 pg (26.0-34.0); Mean Corpuscular HGB Conc 33.6 g/dL (31.5-36.5); Mean Corpuscular Volume 89 fL (80-100); Mean Platelet Volume 9.6 fL (9.1-12.4); NEUTROPHILS PERCENT AUTO 77 % (41-73); Platelet Count 348 K/mm3 (150-400); RDW Coefficient Variation 13.2 % (11.7-14.2); White Blood Cell Count 14.99 K/mm3 (4.00-11.30)
[2024-03-14] MEDS ORDERED: HYDHCL25 PO (21:31)
[2024-03-14] MEDS ORDERED: ONDA4 PO (21:32)
[2024-03-14] MEDS ORDERED: ATOR40TA PO (21:32)
[2024-03-14] MEDS ORDERED: PREDNISONE10 MG PO (21:33)
[2024-03-14 21:49] LABS: Source, Urine Clean Catch
[2024-03-14 21:51] LABS: Bilirubin, Urine Neg (Neg); Blood, Urine 4+ (Neg); Glucose Qualitative, Urine Neg (Neg); Ketones, Urine Neg (Neg); Leukocyte Esterase, Urine 1+ (Neg); Nitrite, Urine Neg (Neg); Protein, Urine 1+ (Neg); Specific Gravity, Urine 1.015 (1.003-1.022); Urobilinogen, Urine NORM (Normal)
[2024-03-14 21:52] LABS: Albumin, Blood 3.5 g/dL (3.4-5.0); Albumin/Globulin Ratio 0.9 (0.8-1.8); Bilirubin, Total 0.3 mg/dL (0.1-1.0); Bun/Creatinine Ratio 17.3 (12.0-20.0); Calcium, Blood 8.4 mg/dL (8.5-10.1); Creatinine, Blood 0.69 mg/dL (0.40-1.00); Globulin, Blood 3.9 g/dL (2.2-4.0); Potassium, Blood 4.2 mmol/L (3.5-5.5); Total Protein, Blood 7.4 g/dL (6.4-8.2)
[2024-03-14 22:18] LABS: Amorphous Light (0-Heavy); Appearance, Urine Hazy (Clear); Bacteria Mod /hpf; Color, Urine Yellow (P-Yellow); Red Blood Cells, Urine 0-2 /hpf (0-2); Squamous Epithelial Cells Mod /hpf (Few)
[2024-03-14] MEDS ORDERED: NS 1,000 ML IV SCH (22:50)
[2024-03-14] MEDS ORDERED: HYDROmorphone HCl/Pf 1MG SYR IV ONE (22:50)
[2024-03-14] MEDS ORDERED: Ondansetron HCl 2 MG / ML 2ML Vial IV ONE (22:50)
[2024-03-15 01:30] VITALS: BP 157/88
== END 2024-03-15 01:48 | disposition home or self-care (01) ==
LOC: ER 20:03
PROVIDERS: Physician Assistant
DX: K52.9 Noninfective gastroenteritis and colitis, unspecified (principal); Z79.899 Other long term (current) drug therapy; Z79.52 Long term (current) use of systemic steroids; Z79.890 Hormone replacement therapy
CPT/HCPCS: 74177; 80053; 81001; 83690; 85025; 87086; 96361; 96374-59; 96375; 99284-25; J1170; J2405; J7030; Q9967

== ENCOUNTER 2025-07-05 21:44 | Emergency (ER) | payer OTHER ==
[~2025-07-05] VITALS: Ht 157.5 cm; Wt 64.4 kg
[~2025-07-05 21:44] MED LIST changes: +ATOR40TA PO; +PREDNISONE10 MG PO
[2025-07-05 22:04] LABS: BASOPHILS ABSOLUTE AUTO 0.07 K/mm3 (0.00-0.23); BASOPHILS PERCENT AUTO 1 % (0-2); EOSINOPHILS ABSOLUTE AUTO 0.10 K/mm3 (0.00-0.68); EOSINOPHILS PERCENT AUTO 1 % (0-6); Hematocrit 41.7 % (33.0-51.0); Hemoglobin 13.7 g/dL (11.5-16.0); IMMATURE GRAN ABSOLUTE AUTO 0.07 K/mm3 (0.00-0.10); IMMATURE GRAN PERCENT AUTO 1 % (0-1); LYMPHOCYTES ABSOLUTE AUTO 2.30 K/mm3 (0.84-5.20); LYMPHOCYTES PERCENT AUTO 17 % (21-46); MONOCYTES ABSOLUTE AUTO 0.70 K/mm3 (0.16-1.47); MONOCYTES PERCENT AUTO 5 % (4-13); Mean Corpuscular HGB Conc 32.9 g/dL (31.5-36.5); Mean Corpuscular Volume 90 fL (80-100); NEUTROPHILS ABSOLUTE AUTO 10.48 K/mm3 (1.96-9.15); NEUTROPHILS PERCENT AUTO 76 % (41-73); NRBC ABSOLUTE 0.00 K/mm3 (0.00-0.02); NRBC Auto 0.0 /100 WBC (0.0-0.2); Platelet Count 435 K/mm3 (150-400); RDW Coefficient Variation 15.3 % (11.7-14.2); RDW Standard Deviation 50.4 fL (35.1-46.3)
[2025-07-05 22:30] LABS: Alanine Aminotransfer (ALT/SGP 19.0 U/L (12-78); Albumin, Blood 3.4 g/dL (3.4-5.0); Albumin/Globulin Ratio 0.9 (0.8-1.8); Anion Gap 9.0 mmol/L (3-11); Aspartate Aminotrans (AST/SGOT 25.0 U/L (12-37); Bilirubin, Total 0.5 mg/dL (0.1-1.0); Blood Urea Nitrogen 10.0 mg/dL (8-24); CO2, Blood 22.0 mmol/L (21-32); Calcium, Blood 9.0 mg/dL (8.5-10.1); Chloride, Blood 109.0 mmol/L (98-108); Creatinine, Blood 0.67 mg/dL (0.40-1.00); Globulin, Blood 3.7 g/dL (2.2-4.0); Glucose, Blood 116.0 mg/dL (70-99); Potassium, Blood 4.3 mmol/L (3.5-5.5); Sodium, Blood 136.0 mmol/L (136-145); Total Protein, Blood 7.1 g/dL (6.4-8.2)
[2025-07-05] MEDS ORDERED: Ondansetron HCl 2 MG / ML 2ML Vial IV ONE (23:20)
[2025-07-06] MEDS ORDERED: Ondansetron HCl 2 MG / ML 2ML Vial IV ONE ×2 (00:05→02:45)
[2025-07-06] MEDS ORDERED: Morphine Sulfate 4 MG/1 ML Injection IV ONE (00:05)
[2025-07-06 01:30] LABS: Source, Urine Clean Catch
[2025-07-06 01:49] LABS: Bilirubin, Urine Neg (Neg); Glucose Qualitative, Urine Neg (Neg); Ketones, Urine Neg (Neg); Leukocyte Esterase, Urine 1+ (Neg); Protein, Urine 1+ (Neg); Specific Gravity, Urine 1.010 (1.003-1.022); Urobilinogen, Urine NORM (Normal)
[2025-07-06 02:01] LABS: Color, Urine Pale Yellow (P-Yellow)
[2025-07-06 02:02] LABS: Red Blood Cells, Urine 0-2 /hpf (0-2); White Blood Cells, Urine 0-2 /hpf (0-5)
[2025-07-06] MEDS ORDERED: RX Prepack 2 Tabs Ondansetron ODT 4MG UD ONE (02:45)
[2025-07-06] MEDS ORDERED: ONDA4ODT MM (02:45)
[2025-07-06] MEDS ORDERED: Ketorolac Tromethamine 15mg Vial IV ONE (02:45)
[2025-07-06 03:52] VITALS: BP 145/106
== END 2025-07-06 03:50 | disposition home or self-care (01) ==
LOC: ER 21:44
PROVIDERS: Student in an Organized Health Care Education/Training Program
DX: R10.84 Generalized abdominal pain (principal); R11.2 Nausea with vomiting, unspecified; E03.9 Hypothyroidism, unspecified; J44.9 Chronic obstructive pulmonary disease, unspecified; G40.909 Epilepsy, unspecified, not intractable, without status epilepticus; I25.2 Old myocardial infarction; F17.210 Nicotine dependence, cigarettes, uncomplicated; Z88.0 Allergy status to penicillin; Z88.8 Allergy status to other drugs, medicaments and biological substances; Z88.2 Allergy status to sulfonamides; Z88.1 Allergy status to other antibiotic agents; Z79.899 Other long term (current) drug therapy; Z79.890 Hormone replacement therapy
CPT/HCPCS: 74177; 80053; 81001; 83690; 85025; 87086; 93005; 93010; 96374; 96375; 96376; 99285-25; A9270; J1885; J2270; J2405; J7120; Q9967